=== PATIENT | male | born 1935 | race Caucasian/White ===

== ENCOUNTER 2020-06-06 20:46 | Inpatient (IN) ==
[2020-06-06] MEDS ORDERED: *HR* HYDROcodone/Acet 5/325 mg TABLET PO ONE (21:05)
[2020-06-06] MEDS ORDERED: GI Cocktail 40 ML EACH PO ONE (21:06)
[2020-06-06 21:17] LABS: Basophils % 0.1 %; Eosinophils # 0.1 K/mcL (0.0-0.6); Eosinophils % 0.7 %; Hematocrit 34.8 % (37.5-50.1); Hemoglobin 11.3 g/dL (12.9-16.9); Immature Granulocytes % 0.7 % (0-4); Lymphocytes # 0.6 K/mcL (0.6-4.6); Lymphocytes % 4.8 %; Mean Corpuscular HGB Conc 32.5 g/dL (31.6-35.5); Mean Corpuscular Hemoglobin 33.1 pg (28.0-33.3); Mean Corpuscular Volume 102.1 fL (83.0-100.0); Mean Platelet Volume 9.8 fL (9.4-12.4); Monocytes # 0.6 K/mcL (0.0-1.3); Monocytes % 4.7 %; Neutrophils # 11.1 K/mcL (1.6-8.9); Platelet Count 268 K/mcL (140-400); Red Blood Count 3.41 M/mcL (4.19-5.50); White Blood Count 12.5 K/mcL (4.3-11.1)
[2020-06-06 22:52] LABS: Alanine Aminotransferase 16 Units/L (7-52); Albumin/Globulin Ratio 1.3 (1.1-2.2); Alkaline Phosphatase 50 Units/L (34-104); Aspartate Amino Transferase 13 Units/L (13-39); BUN/Creatinine Ratio 42 (6-26); Bilirubin,Total 0.3 mg/dL (0.3-1.0); Blood Urea Nitrogen 25 mg/dL (8-23); Calcium 8.8 mg/dL (8.6-10.3); Carbon Dioxide 21 mEq/L (23-29); Chloride 104 mEq/L (98-107); Globulin 2.4 g/dL (2.4-3.5); Glucose 158 mg/dL (70-105); Lipase 40 Units/L (11-82); Osmolality,Calculated 294 (280-300); Potassium 4.6 mEq/L (3.5-5.1); Sodium 138 mEq/L (136-145); Total Protein 5.4 g/dL (6.4-8.9); eGFR For African Americans > 60 (> 60); eGFR For Non-African Americans > 60 (> 60)
[2020-06-06] MEDS ORDERED: Aspirin 325 MG TABLET PO ONE (23:34)
[2020-06-06] MEDS ORDERED: Metoclopramide 10 MG/2 ML VIAL IVP ONE (23:36)
[2020-06-06] MEDS ORDERED: Naloxone 0.4 MG/ML INJ IVP PRN (23:48)
[2020-06-07] MEDS ORDERED: D5% in Water 1,000 ML IVC PRN (01:13)
[2020-06-07] MEDS ORDERED: Dextrose Gel 15 GM/37.5 ML TUBE PO PRN ×2 (01:13)
[2020-06-07] MEDS ORDERED: *HR* Dextrose 50 % in Water (Vial) 50 ML VIAL IVP PRN (01:13)
[2020-06-07 05:23] LABS: Hematocrit 32.9 % (37.5-50.1); Hemoglobin 10.7 g/dL (12.9-16.9); Mean Corpuscular HGB Conc 32.5 g/dL (31.6-35.5); Mean Corpuscular Hemoglobin 32.9 pg (28.0-33.3); Mean Corpuscular Volume 101.2 fL (83.0-100.0); Mean Platelet Volume 9.8 fL (9.4-12.4); Platelet Count 246 K/mcL (140-400); Red Blood Count 3.25 M/mcL (4.19-5.50); Red Cell Distribution Width 14.1 % (11.5-14.5); White Blood Count 9.1 K/mcL (4.3-11.1)
[2020-06-07 05:28] LABS: Prothrombin Time 11.2 Seconds (9.4-12.1)
[2020-06-07 05:30] LABS: Activated Partial Thrombo Time 25.1 Seconds (26.0-36.0)
[2020-06-07] MEDS: Insulin LISPRO 300 UNITS/3 ML VIAL SQ SCH ×6 (05:40→20:52)
[2020-06-07 05:45] LABS: BUN/Creatinine Ratio 44 (6-26); Blood Urea Nitrogen 27 mg/dL (8-23); Calcium 8.2 mg/dL (8.6-10.3); Carbon Dioxide 23 mEq/L (23-29); Chloride 104 mEq/L (98-107); Glucose 119 mg/dL (70-105); Magnesium 1.6 mg/dL (1.6-2.6); Osmolality,Calculated 290 (280-300); Phosphorous 2.1 mg/dL (2.7-4.5); Potassium 4.5 mEq/L (3.5-5.1); Sodium 137 mEq/L (136-145); Troponin I < 0.03 ng/mL (< 0.04); eGFR For African Americans > 60 (> 60); eGFR For Non-African Americans > 60 (> 60)
[2020-06-07] MEDS ORDERED: Regadenoson 0.4 MG/5 ML SYRINGE IVP ONE (06:55)
[2020-06-07 10:14] LABS: Estimated Average Glucose 140 mg/dl; Hemoglobin A1C 6.5 %
[2020-06-07] MEDS: Sennosides/Docusate Sodium TABLET PO SCH ×2 (10:18→20:53)
[2020-06-07 11:55] LABS: Bilirubin,Urine Negative (Negative); Blood,Urine Small (Negative); Clarity,Urine Turbid (Clear); Color,Urine Yellow (Yellow); Glucose,Urine (UA) Normal (Normal); Hyaline Casts,Urine Few per lpf (None Seen); Ketones,Urine Negative (Negative); Leukocyte Esterase,Urine Trace (Negative); Mucus,Urine Few per lpf (None-Few); Nitrite,Urine Negative (Negative); Protein,Urine 50 mg/dL (Neg-Trace); RBC,Urine 15-30 per hpf (0-3); Specific Gravity,Urine 1.024 (1.010-1.025); Squamous Epithelial Cell,Urine Few per hpf (None-Few); Uric Acid Crystals,Urine Present; Urobilinogen,Urine Normal (Normal)
[2020-06-07] MEDS: Miconazole 2% ointment 141 APPL/141 GM TUBE TP SCH (12:59)
[2020-06-07] MEDS: Furosemide 40 MG TABLET PO SCH (13:08)
[2020-06-07] MEDS: amLODIPine 5 MG TABLET PO SCH (13:08)
[2020-06-07] MEDS: Aspirin Enteric Coated 81 MG Tablet PO SCH (13:08)
[2020-06-07] MEDS: carvediloL 6.25 MG TABLET PO SCH ×2 (13:09→20:53)
[2020-06-07] MEDS: cefTRIAXone 1,000 MG in Water for inj. (sterile) 10 ML IVP SCH (13:09)
[2020-06-07] MEDS: levETIRAcetam 250 MG TABLET PO SCH ×2 (13:12→20:53)
[2020-06-07] MEDS: *HR* Heparin 5,000 UNIT/ML VIAL SQ SCH (17:29)
[2020-06-08 05:16] LABS: Basophils % 0.1 %; Eosinophils # 0.4 K/mcL (0.0-0.6); Eosinophils % 4.5 %; Hemoglobin 10.3 g/dL (12.9-16.9); Immature Granulocytes % 0.6 % (0-4); Lymphocytes % 12.6 %; Mean Corpuscular HGB Conc 32.2 g/dL (31.6-35.5); Mean Corpuscular Hemoglobin 32.2 pg (28.0-33.3); Mean Platelet Volume 9.5 fL (9.4-12.4); Monocytes # 0.8 K/mcL (0.0-1.3); Monocytes % 10.5 %; Neutrophils # 5.6 K/mcL (1.6-8.9); Platelet Count 233 K/mcL (140-400); Red Cell Distribution Width 14.2 % (11.5-14.5); Segmented Neutrophils % 71.7 %; White Blood Count 7.8 K/mcL (4.3-11.1)
[2020-06-08 05:38] LABS: BUN/Creatinine Ratio 35 (6-26); Blood Urea Nitrogen 22 mg/dL (8-23); Calcium 7.7 mg/dL (8.6-10.3); Carbon Dioxide 27 mEq/L (23-29); Chloride 103 mEq/L (98-107); Glucose 89 mg/dL (70-105); Magnesium 1.7 mg/dL (1.6-2.6); Osmolality,Calculated 285 (280-300); Phosphorous 1.9 mg/dL (2.7-4.5); Potassium 3.7 mEq/L (3.5-5.1); Sodium 136 mEq/L (136-145); eGFR For African Americans > 60 (> 60); eGFR For Non-African Americans > 60 (> 60)
[2020-06-08] MEDS: *HR* Heparin 5,000 UNIT/ML VIAL SQ SCH ×2 (05:43→17:09)
[2020-06-08] MEDS: Insulin LISPRO 300 UNITS/3 ML VIAL SQ SCH ×5 (08:08→20:37)
[2020-06-08] MEDS: cefTRIAXone 1,000 MG in Water for inj. (sterile) 10 ML IVP SCH (08:51)
[2020-06-08] MEDS: Sennosides/Docusate Sodium TABLET PO SCH ×2 (08:51→19:48)
[2020-06-08] MEDS: carvediloL 6.25 MG TABLET PO SCH ×2 (08:52→20:33)
[2020-06-08] MEDS: amLODIPine 5 MG TABLET PO SCH (08:52)
[2020-06-08] MEDS: levETIRAcetam 250 MG TABLET PO SCH ×2 (08:52→19:49)
[2020-06-08] MEDS: Furosemide 40 MG TABLET PO SCH (08:52)
[2020-06-08] MEDS: Aspirin Enteric Coated 81 MG Tablet PO SCH (08:52)
[2020-06-08] MEDS: Miconazole 2% ointment 141 APPL/141 GM TUBE TP SCH (09:00)
[2020-06-08] MEDS: Budesonide/Formoterol 160/4.5 1 PUFF INH IH SCH ×2 (09:30→21:49)
[2020-06-08] MEDS: predniSONE 5 MG TABLET PO SCH ×2 (09:37→17:09)
[2020-06-08] MEDS: Lactobacillus 1 EACH CAP.SPRINK PO SCH (09:37)
[2020-06-08] MEDS: *HR* HYDROcodone/Acet 5/325 mg TABLET PO PRN ×2 (09:37→15:46)
[2020-06-08] MEDS: Tiotropium 18 MCG inhalation IH SCH (09:44)
[2020-06-08] MEDS ORDERED: Budesonide/Formoterol 160/4.5 1 PUFF INH IH SCH (10:00)
[2020-06-08 18:45] LABS: Adenovirus Not Detected (Not Detect); Coronavirus 229E Not Detected (Not Detect); Coronavirus HKU1 Not Detected (Not Detect); Coronavirus NL63 Not Detected (Not Detect); Coronavirus OC43 Not Detected (Not Detect); Human Metapneumovirus Not Detected (Not Detect); Human Rhinovirus/Enterovirus Not Detected (Not Detect); Influenza A Subtype 2009 H1 Not Detected (Not Detect)
[2020-06-08 18:46] LABS: Bordetella Pertussis Not Detected (Not Detect); Chlamydophila pneumoniae Not Detected (Not Detect); Influenza B Not Detected (Not Detect); Mycoplasma pneumoniae Not Detected (Not Detect); Parainfluenza Virus 1 Not Detected (Not Detect); Parainfluenza Virus 2 Not Detected (Not Detect); Parainfluenza Virus 3 Not Detected (Not Detect); Parainfluenza Virus 4 Not Detected (Not Detect); Respiratory Syncytial Virus Not Detected (Not Detect)
[2020-06-08 18:50] LABS: SARS-CoV-2 Not Detected (Not Detect)
[2020-06-09] MEDS: *HR* HYDROcodone/Acet 5/325 mg TABLET PO PRN ×2 (00:05→18:27)
[2020-06-09] MEDS: *HR* Heparin 5,000 UNIT/ML VIAL SQ SCH ×2 (05:45→18:17)
[2020-06-09] MEDS: levETIRAcetam 250 MG TABLET PO SCH ×2 (08:46→21:08)
[2020-06-09] MEDS: Aspirin Enteric Coated 81 MG Tablet PO SCH (08:47)
[2020-06-09] MEDS: amLODIPine 5 MG TABLET PO SCH (08:47)
[2020-06-09] MEDS: predniSONE 5 MG TABLET PO SCH ×2 (08:47→16:18)
[2020-06-09] MEDS: Sennosides/Docusate Sodium TABLET PO SCH ×2 (08:47→21:08)
[2020-06-09] MEDS: Lactobacillus 1 EACH CAP.SPRINK PO SCH (08:47)
[2020-06-09] MEDS: carvediloL 6.25 MG TABLET PO SCH ×2 (08:48→16:18)
[2020-06-09] MEDS: Furosemide 40 MG TABLET PO SCH (08:48)
[2020-06-09] MEDS: Insulin LISPRO 300 UNITS/3 ML VIAL SQ SCH ×5 (08:49→21:09)
[2020-06-09] MEDS: Tiotropium 18 MCG inhalation IH SCH (09:42)
[2020-06-09] MEDS: Budesonide/Formoterol 160/4.5 1 PUFF INH IH SCH ×2 (09:45→21:39)
[2020-06-09] MEDS: Miconazole 2% ointment 141 APPL/141 GM TUBE TP SCH (16:18)
[2020-06-10] MEDS: *HR* Heparin 5,000 UNIT/ML VIAL SQ SCH ×2 (05:26→17:06)
[2020-06-10] MEDS: Tiotropium 18 MCG inhalation IH SCH (07:56)
[2020-06-10] MEDS: Budesonide/Formoterol 160/4.5 1 PUFF INH IH SCH ×2 (07:56→21:59)
[2020-06-10] MEDS: Insulin LISPRO 300 UNITS/3 ML VIAL SQ SCH ×5 (08:19→21:27)
[2020-06-10 08:20] LABS: Hematocrit 31.4 % (37.5-50.1); Hemoglobin 10.3 g/dL (12.9-16.9); Mean Corpuscular HGB Conc 32.8 g/dL (31.6-35.5); Mean Corpuscular Hemoglobin 32.8 pg (28.0-33.3); Mean Platelet Volume 9.5 fL (9.4-12.4); Platelet Count 240 K/mcL (140-400); Red Blood Count 3.14 M/mcL (4.19-5.50); Red Cell Distribution Width 14.5 % (11.5-14.5); White Blood Count 7.2 K/mcL (4.3-11.1)
[2020-06-10] MEDS: Sennosides/Docusate Sodium TABLET PO SCH ×2 (08:24→21:26)
[2020-06-10] MEDS: Aspirin Enteric Coated 81 MG Tablet PO SCH (08:24)
[2020-06-10] MEDS: amLODIPine 5 MG TABLET PO SCH (08:24)
[2020-06-10] MEDS: carvediloL 6.25 MG TABLET PO SCH ×2 (08:25→17:06)
[2020-06-10] MEDS: Lactobacillus 1 EACH CAP.SPRINK PO SCH (08:25)
[2020-06-10] MEDS: levETIRAcetam 250 MG TABLET PO SCH ×2 (08:25→21:26)
[2020-06-10] MEDS: predniSONE 5 MG TABLET PO SCH ×2 (08:25→17:06)
[2020-06-10] MEDS: Furosemide 40 MG TABLET PO SCH (08:25)
[2020-06-10 09:33] LABS: BUN/Creatinine Ratio 26 (6-26); Blood Urea Nitrogen 16 mg/dL (8-23); Calcium 8.1 mg/dL (8.6-10.3); Carbon Dioxide 24 mEq/L (23-29); Chloride 104 mEq/L (98-107); Glucose 95 mg/dL (70-105); Osmolality,Calculated 287 (280-300); Potassium 4.2 mEq/L (3.5-5.1); Sodium 138 mEq/L (136-145); eGFR For African Americans > 60 (> 60); eGFR For Non-African Americans > 60 (> 60)
[2020-06-10] MEDS: *HR* HYDROcodone/Acet 5/325 mg TABLET PO PRN ×3 (10:13→23:13)
[2020-06-10] MEDS: Miconazole 2% ointment 141 APPL/141 GM TUBE TP SCH (15:22)
[2020-06-10] MEDS: Methyl Salicylate/Menthol 57 APPL/57 GM TUBE TP PRN (15:22)
[2020-06-11] MEDS: Acetaminophen 325 MG TABLET PO PRN ×2 (04:16→18:38)
[2020-06-11] MEDS: *HR* Heparin 5,000 UNIT/ML VIAL SQ SCH ×2 (06:34→18:39)
[2020-06-11] MEDS: Insulin LISPRO 300 UNITS/3 ML VIAL SQ SCH ×3 (08:07→18:31)
[2020-06-11] MEDS: Tiotropium 18 MCG inhalation IH SCH (08:11)
[2020-06-11] MEDS: Budesonide/Formoterol 160/4.5 1 PUFF INH IH SCH (08:12)
[2020-06-11] MEDS: Lactobacillus 1 EACH CAP.SPRINK PO SCH (09:50)
[2020-06-11] MEDS: Sennosides/Docusate Sodium TABLET PO SCH ×2 (09:50→20:14)
[2020-06-11] MEDS: carvediloL 6.25 MG TABLET PO SCH ×2 (09:50→18:38)
[2020-06-11] MEDS: levETIRAcetam 250 MG TABLET PO SCH ×2 (09:50→20:14)
[2020-06-11] MEDS: predniSONE 5 MG TABLET PO SCH ×2 (09:51→18:39)
[2020-06-11] MEDS: Aspirin Enteric Coated 81 MG Tablet PO SCH (09:51)
[2020-06-11] MEDS: Methyl Salicylate/Menthol 57 APPL/57 GM TUBE TP PRN (09:51)
[2020-06-11] MEDS: amLODIPine 5 MG TABLET PO SCH (09:51)
[2020-06-11] MEDS: Furosemide 40 MG TABLET PO SCH (09:51)
[2020-06-11 13:14] VITALS: BP 150/77
[2020-06-11] MEDS: Miconazole 2% ointment 141 APPL/141 GM TUBE TP SCH (18:38)
== END 2020-06-11 20:32 | disposition home health service (06) | DRG 556 ==
LOC: 3BNU 20:46 → EMEROOARM 20:46 → SUATTDRO 06-07 00:24 → 3BNU 06-07 00:49 → 3ANU 06-08 16:35
PROVIDERS: ADMIT Family Medicine; ATTEND Internal Medicine

== ENCOUNTER 2020-06-26 12:05 | Inpatient (IN) ==
[2020-06-26] MEDS ORDERED: Piperacillin/Tazobactam 3.375 GM in 0.9 % Sodium Chloride Mini Bag 100 ML IVPB ONE (12:24)
[2020-06-26] MEDS ORDERED: Isovue-370 500 ML BOTTLE IVP ONE (12:24)
[2020-06-26 13:10] LABS: Prothrombin Time 11.5 Seconds (9.4-12.1)
[2020-06-26 13:21] LABS: Basophils % 0.3 %; Eosinophils # 0.2 K/mcL (0.0-0.6); Eosinophils % 1.7 %; Hematocrit 37.8 % (37.5-50.1); Hemoglobin 11.6 g/dL (12.9-16.9); Immature Granulocytes % 0.7 % (0-4); Lymphocytes # 0.6 K/mcL (0.6-4.6); Lymphocytes % 5.3 %; Mean Corpuscular HGB Conc 30.7 g/dL (31.6-35.5); Mean Corpuscular Hemoglobin 32.2 pg (28.0-33.3); Mean Platelet Volume 9.6 fL (9.4-12.4); Monocytes # 0.7 K/mcL (0.0-1.3); Monocytes % 5.7 %; Neutrophils # 10.5 K/mcL (1.6-8.9); Platelet Count 329 K/mcL (140-400); Red Cell Distribution Width 14.4 % (11.5-14.5); Segmented Neutrophils % 86.3 %; White Blood Count 12.2 K/mcL (4.3-11.1)
[2020-06-26 13:23] LABS: BUN/Creatinine Ratio 41 (6-26); Blood Urea Nitrogen 27 mg/dL (8-23); Calcium 8.8 mg/dL (8.6-10.3); Carbon Dioxide 22 mEq/L (23-29); Chloride 104 mEq/L (98-107); Glucose 96 mg/dL (70-105); Osmolality,Calculated 291 (280-300); Potassium 4.1 mEq/L (3.5-5.1); Sodium 138 mEq/L (136-145); eGFR For African Americans > 60 (> 60); eGFR For Non-African Americans > 60 (> 60)
[2020-06-26 15:13] LABS: Adenovirus Not Detected (Not Detect); Bordetella Pertussis Not Detected (Not Detect); Chlamydophila pneumoniae Not Detected (Not Detect); Coronavirus 229E Not Detected (Not Detect); Coronavirus HKU1 Not Detected (Not Detect); Coronavirus NL63 Not Detected (Not Detect); Coronavirus OC43 Not Detected (Not Detect); Human Metapneumovirus Not Detected (Not Detect); Human Rhinovirus/Enterovirus Not Detected (Not Detect); Influenza A Subtype 2009 H1 Not Detected (Not Detect); Influenza B Not Detected (Not Detect); Mycoplasma pneumoniae Not Detected (Not Detect); Parainfluenza Virus 1 Not Detected (Not Detect); Parainfluenza Virus 2 Not Detected (Not Detect); Parainfluenza Virus 3 Not Detected (Not Detect); Parainfluenza Virus 4 Not Detected (Not Detect); Respiratory Syncytial Virus Not Detected (Not Detect)
[2020-06-26] MEDS ORDERED: Naloxone 0.4 MG/ML INJ IVP PRN (15:40)
[2020-06-26 16:37] LABS: C-Reactive Protein 98 mg/L (Less than 10)
[2020-06-26] MEDS ORDERED: Dextrose Gel 15 GM/37.5 ML TUBE PO PRN ×2 (16:38)
[2020-06-26] MEDS ORDERED: D5% in Water 1,000 ML IVC PRN (16:38)
[2020-06-26] MEDS ORDERED: *HR* Dextrose 50 % in Water (Vial) 50 ML VIAL IVP PRN (16:38)
[2020-06-26] MEDS ORDERED: Albuterol 2.5 MG/3 ML NEBULIZER IH PRN (16:40)
[2020-06-26] MEDS ORDERED: 0.9 % Sodium Chloride 1,000 ML IVC SCH (18:15)
[2020-06-26] MEDS: carvediloL 6.25 MG TABLET PO SCH (19:05)
[2020-06-26] MEDS: Budesonide/Formoterol 160/4.5 1 PUFF INH IH SCH (19:36)
[2020-06-26] MEDS: levETIRAcetam 250 MG TABLET PO SCH (21:31)
[2020-06-26] MEDS: predniSONE 5 MG TABLET PO SCH (21:31)
[2020-06-26] MEDS: *HR* Heparin 5,000 UNIT/ML VIAL SQ SCH (21:31)
[2020-06-26] MEDS: *HR* HYDROcodone/Acet 5/325 mg TABLET PO PRN (21:51)
[2020-06-27] MEDS: *HR* HYDROcodone/Acet 5/325 mg TABLET PO PRN ×3 (04:24→20:49)
[2020-06-27] MEDS: *HR* Heparin 5,000 UNIT/ML VIAL SQ SCH ×3 (04:28→20:49)
[2020-06-27 06:05] LABS: Basophils % 0.5 %; Eosinophils # 0.1 K/mcL (0.0-0.6); Hematocrit 37.8 % (37.5-50.1); Hemoglobin 11.1 g/dL (12.9-16.9); Immature Granulocytes % 1.2 % (0-4); Lymphocytes # 0.9 K/mcL (0.6-4.6); Lymphocytes % 11.7 %; Mean Corpuscular HGB Conc 29.4 g/dL (31.6-35.5); Mean Corpuscular Hemoglobin 32.3 pg (28.0-33.3); Mean Corpuscular Volume 109.9 fL (83.0-100.0); Mean Platelet Volume 9.9 fL (9.4-12.4); Monocytes # 0.6 K/mcL (0.0-1.3); Monocytes % 7.8 %; Platelet Count 411 K/mcL (140-400); Red Blood Count 3.44 M/mcL (4.19-5.50); Red Cell Distribution Width 14.5 % (11.5-14.5); Segmented Neutrophils % 77.8 %; White Blood Count 7.7 K/mcL (4.3-11.1)
[2020-06-27 06:24] LABS: BUN/Creatinine Ratio 44 (6-26); Blood Urea Nitrogen 34 mg/dL (8-23); Calcium 8.2 mg/dL (8.6-10.3); Carbon Dioxide 12 mEq/L (23-29); Chloride 105 mEq/L (98-107); Glucose 122 mg/dL (70-105); Osmolality,Calculated 293 (280-300); Potassium 4.3 mEq/L (3.5-5.1); Sodium 137 mEq/L (136-145); eGFR For African Americans > 60 (> 60); eGFR For Non-African Americans > 60 (> 60)
[2020-06-27] MEDS: Budesonide/Formoterol 160/4.5 1 PUFF INH IH SCH ×2 (07:13→21:22)
[2020-06-27] MEDS: Tiotropium 18 MCG inhalation IH SCH (07:13)
[2020-06-27] MEDS: levETIRAcetam 250 MG TABLET PO SCH ×2 (10:13→20:49)
[2020-06-27] MEDS: Lactobacillus 1 EACH CAP.SPRINK PO SCH (10:13)
[2020-06-27] MEDS: Furosemide 40 MG TABLET PO SCH (10:14)
[2020-06-27] MEDS: amLODIPine 5 MG TABLET PO SCH (10:14)
[2020-06-27] MEDS: lisinopriL 10 MG TABLET PO SCH (10:15)
[2020-06-27] MEDS: Aspirin Enteric Coated 81 MG Tablet PO SCH (10:15)
[2020-06-27] MEDS: predniSONE 5 MG TABLET PO SCH ×2 (10:15→20:49)
[2020-06-27] MEDS: carvediloL 6.25 MG TABLET PO SCH ×2 (10:29→18:27)
[2020-06-27] MEDS: Insulin LISPRO 300 UNITS/3 ML VIAL SQ SCH ×3 (11:14→18:27)
[2020-06-27] MEDS: Miconazole 2% ointment 141 APPL/141 GM TUBE TP SCH (11:15)
[2020-06-27] MEDS: Gentamicin Oint 15 GM TUBE TP SCH (18:14)
[2020-06-27] MEDS: Primidone 50 MG TABLET PO SCH (20:49)
[2020-06-28] MEDS: *HR* Heparin 5,000 UNIT/ML VIAL SQ SCH ×3 (05:38→21:22)
[2020-06-28] MEDS: *HR* HYDROcodone/Acet 5/325 mg TABLET PO PRN ×3 (05:38→21:21)
[2020-06-28 07:51] LABS: BUN/Creatinine Ratio 45 (6-26); Blood Urea Nitrogen 33 mg/dL (8-23); Calcium 8.1 mg/dL (8.6-10.3); Carbon Dioxide 21 mEq/L (23-29); Chloride 108 mEq/L (98-107); Glucose 118 mg/dL (70-105); Osmolality,Calculated 292 (280-300); Potassium 3.5 mEq/L (3.5-5.1); Sodium 137 mEq/L (136-145); eGFR For African Americans > 60 (> 60); eGFR For Non-African Americans > 60 (> 60)
[2020-06-28] MEDS: Insulin LISPRO 300 UNITS/3 ML VIAL SQ SCH ×3 (07:58→17:00)
[2020-06-28] MEDS: levETIRAcetam 250 MG TABLET PO SCH ×2 (08:08→19:34)
[2020-06-28] MEDS: Aspirin Enteric Coated 81 MG Tablet PO SCH (08:08)
[2020-06-28] MEDS: Lactobacillus 1 EACH CAP.SPRINK PO SCH (08:08)
[2020-06-28] MEDS: carvediloL 6.25 MG TABLET PO SCH ×2 (08:08→17:00)
[2020-06-28] MEDS: Furosemide 40 MG TABLET PO SCH (08:08)
[2020-06-28] MEDS: predniSONE 5 MG TABLET PO SCH ×2 (08:09→19:34)
[2020-06-28] MEDS: lisinopriL 10 MG TABLET PO SCH (08:09)
[2020-06-28] MEDS: amLODIPine 5 MG TABLET PO SCH (08:09)
[2020-06-28] MEDS: Primidone 50 MG TABLET PO SCH ×2 (08:09→19:34)
[2020-06-28 08:57] LABS: Basophils % 0.5 %; Eosinophils # 0.2 K/mcL (0.0-0.6); Eosinophils % 2.2 %; Hematocrit 31.8 % (37.5-50.1); Lymphocytes # 1.1 K/mcL (0.6-4.6); Lymphocytes % 12.9 %; Mean Corpuscular HGB Conc 31.4 g/dL (31.6-35.5); Mean Corpuscular Hemoglobin 31.6 pg (28.0-33.3); Mean Corpuscular Volume 100.6 fL (83.0-100.0); Mean Platelet Volume 9.7 fL (9.4-12.4); Monocytes # 0.8 K/mcL (0.0-1.3); Platelet Count 333 K/mcL (140-400); Red Blood Count 3.16 M/mcL (4.19-5.50); Red Cell Distribution Width 14.6 % (11.5-14.5); Segmented Neutrophils % 73.4 %; White Blood Count 8.1 K/mcL (4.3-11.1)
[2020-06-28] MEDS: Tiotropium 18 MCG inhalation IH SCH (10:21)
[2020-06-28] MEDS: Budesonide/Formoterol 160/4.5 1 PUFF INH IH SCH ×2 (10:21→23:30)
[2020-06-28] MEDS: Gentamicin Oint 15 GM TUBE TP SCH (12:55)
[2020-06-28] MEDS: Miconazole 2% ointment 141 APPL/141 GM TUBE TP SCH (12:56)
[2020-06-29] MEDS: *HR* Heparin 5,000 UNIT/ML VIAL SQ SCH ×3 (05:19→22:02)
[2020-06-29] MEDS: *HR* HYDROcodone/Acet 5/325 mg TABLET PO PRN ×3 (05:19→23:42)
[2020-06-29] MEDS ORDERED: *HR* OxyCODONE Immed Rel 5 MG TABLET PO ONE (08:19)
[2020-06-29] MEDS ORDERED: Isovue-370 500 ML BOTTLE IVP ONE (08:31)
[2020-06-29] MEDS: Lactobacillus 1 EACH CAP.SPRINK PO SCH (09:01)
[2020-06-29] MEDS: Aspirin Enteric Coated 81 MG Tablet PO SCH (09:02)
[2020-06-29] MEDS: levETIRAcetam 250 MG TABLET PO SCH ×2 (09:02→22:01)
[2020-06-29] MEDS: Furosemide 40 MG TABLET PO SCH (09:03)
[2020-06-29] MEDS: predniSONE 5 MG TABLET PO SCH ×2 (09:03→22:01)
[2020-06-29] MEDS: Primidone 50 MG TABLET PO SCH ×2 (09:04→22:01)
[2020-06-29] MEDS: carvediloL 6.25 MG TABLET PO SCH ×2 (09:04→17:58)
[2020-06-29] MEDS: Insulin LISPRO 300 UNITS/3 ML VIAL SQ SCH ×3 (09:05→17:59)
[2020-06-29] MEDS ORDERED: Aspirin 81 MG TAB.CHEW PO ONE (09:14)
[2020-06-29] MEDS: Tiotropium 18 MCG inhalation IH SCH (10:40)
[2020-06-29] MEDS: Budesonide/Formoterol 160/4.5 1 PUFF INH IH SCH ×2 (10:41→22:40)
[2020-06-29 13:30] LABS: Albumin 2.6 g/dL (3.5-5.7); Bilirubin,Direct 0.1 mg/dL (0.0-0.2); Bilirubin,Indirect 0.1 mg/dL (0.0-1.0); Bilirubin,Total 0.2 mg/dL (0.3-1.0); Globulin 2.5 g/dL (2.4-3.5); Total Protein 5.1 g/dL (6.4-8.9)
[2020-06-29 13:43] LABS: Thyroid Stimulating Hormone 5.851 mcIU/mL (0.340-5.600)
[2020-06-29] MEDS: amLODIPine 5 MG TABLET PO SCH (15:22)
[2020-06-29] MEDS: lisinopriL 10 MG TABLET PO SCH (15:22)
[2020-06-29] MEDS ORDERED: Perflutren Lipid Microsphere 1.3 ML in 0.9 % Sodium Chloride 8.7 ML IVP PRN (17:54)
[2020-06-29] MEDS: Miconazole 2% ointment 141 APPL/141 GM TUBE TP SCH (17:58)
[2020-06-29] MEDS: Gentamicin Oint 15 GM TUBE TP SCH (17:58)
[2020-06-30] MEDS: *HR* HYDROcodone/Acet 5/325 mg TABLET PO PRN ×3 (05:40→19:48)
[2020-06-30] MEDS: *HR* Heparin 5,000 UNIT/ML VIAL SQ SCH ×2 (05:41→15:08)
[2020-06-30] MEDS: Tiotropium 18 MCG inhalation IH SCH (07:28)
[2020-06-30] MEDS: Budesonide/Formoterol 160/4.5 1 PUFF INH IH SCH ×2 (07:29→21:45)
[2020-06-30] MEDS: predniSONE 5 MG TABLET PO SCH ×2 (08:38→19:48)
[2020-06-30] MEDS: carvediloL 6.25 MG TABLET PO SCH ×2 (08:39→16:42)
[2020-06-30] MEDS: levETIRAcetam 250 MG TABLET PO SCH ×2 (08:39→19:47)
[2020-06-30] MEDS: Primidone 50 MG TABLET PO SCH ×2 (08:39→19:48)
[2020-06-30] MEDS: Lactobacillus 1 EACH CAP.SPRINK PO SCH (08:39)
[2020-06-30] MEDS: Aspirin Enteric Coated 81 MG Tablet PO SCH (08:39)
[2020-06-30] MEDS: Furosemide 40 MG TABLET PO SCH (08:40)
[2020-06-30] MEDS: amLODIPine 5 MG TABLET PO SCH (08:40)
[2020-06-30] MEDS: lisinopriL 10 MG TABLET PO SCH (08:40)
[2020-06-30] MEDS: Insulin LISPRO 300 UNITS/3 ML VIAL SQ SCH ×3 (08:47→16:43)
[2020-06-30] MEDS: Miconazole 2% ointment 141 APPL/141 GM TUBE TP SCH (12:01)
[2020-06-30] MEDS: Gentamicin Oint 15 GM TUBE TP SCH (12:01)
[2020-06-30] MEDS: Nystatin SUSP 5 ML UD.LIQ PO SCH ×3 (12:23→19:47)
[2020-06-30] MEDS ORDERED: *HR* Heparin 5,000 UNIT/ML VIAL IVP ONE (15:19)
[2020-06-30] MEDS ORDERED: *HR* Heparin 5,000 UNIT/ML VIAL IVP PRN ×2 (15:19)
[2020-06-30] MEDS ORDERED: Heparin 25,000UNIT/250ML 1/2NS 25,000 UNIT/250 ML IV.SOLN IVC SCH (15:30)
[2020-06-30 16:52] LABS: Heparin anti-factor XA UFH 0.61 IU/mL (0.30-0.70); INR 1.2; Prothrombin Time 13.4 Seconds (9.4-12.1)
[2020-06-30 17:10] LABS: Hematocrit 34.8 % (37.5-50.1); Hemoglobin 11.3 g/dL (12.9-16.9); Mean Corpuscular HGB Conc 32.5 g/dL (31.6-35.5); Mean Corpuscular Hemoglobin 33.1 pg (28.0-33.3); Mean Corpuscular Volume 102.1 fL (83.0-100.0); Mean Platelet Volume 9.8 fL (9.4-12.4); Platelet Count 416 K/mcL (140-400); Red Blood Count 3.41 M/mcL (4.19-5.50); Red Cell Distribution Width 14.9 % (11.5-14.5); White Blood Count 10.6 K/mcL (4.3-11.1)
[2020-07-01] MEDS: Budesonide/Formoterol 160/4.5 1 PUFF INH IH SCH ×2 (07:52→22:16)
[2020-07-01] MEDS: Tiotropium 18 MCG inhalation IH SCH (07:53)
[2020-07-01] MEDS: carvediloL 6.25 MG TABLET PO SCH ×2 (08:08→17:11)
[2020-07-01] MEDS: Insulin LISPRO 300 UNITS/3 ML VIAL SQ SCH ×3 (08:08→17:11)
[2020-07-01] MEDS: amLODIPine 5 MG TABLET PO SCH (10:13)
[2020-07-01] MEDS: Lactobacillus 1 EACH CAP.SPRINK PO SCH (10:13)
[2020-07-01] MEDS: predniSONE 5 MG TABLET PO SCH ×2 (10:13→20:31)
[2020-07-01] MEDS: lisinopriL 20 MG TABLET PO SCH (10:14)
[2020-07-01] MEDS: levETIRAcetam 250 MG TABLET PO SCH ×2 (10:14→20:31)
[2020-07-01] MEDS: Primidone 50 MG TABLET PO SCH ×2 (10:14→20:31)
[2020-07-01] MEDS: Aspirin Enteric Coated 81 MG Tablet PO SCH (10:14)
[2020-07-01] MEDS: Nystatin SUSP 5 ML UD.LIQ PO SCH ×4 (10:14→20:31)
[2020-07-01] MEDS: Furosemide 40 MG TABLET PO SCH (10:14)
[2020-07-01] MEDS: *HR* HYDROcodone/Acet 5/325 mg TABLET PO PRN (10:32)
[2020-07-01] MEDS: *HR* Enoxaparin 60 MG/0.6 ML SYRINGE SQ SCH (12:49)
[2020-07-01] MEDS: *HR* OxyCODONE/APAP 5/325 TABLET PO PRN ×2 (14:17→20:31)
[2020-07-01] MEDS: Miconazole 2% ointment 141 APPL/141 GM TUBE TP SCH (17:54)
[2020-07-01] MEDS: Gentamicin Oint 15 GM TUBE TP SCH (17:54)
[2020-07-02] MEDS: *HR* OxyCODONE/APAP 5/325 TABLET PO PRN ×2 (08:47→14:50)
[2020-07-02] MEDS: carvediloL 6.25 MG TABLET PO SCH ×2 (08:47→17:44)
[2020-07-02] MEDS: Insulin LISPRO 300 UNITS/3 ML VIAL SQ SCH ×3 (08:48→17:44)
[2020-07-02] MEDS: Aspirin Enteric Coated 81 MG Tablet PO SCH (09:36)
[2020-07-02] MEDS: Lactobacillus 1 EACH CAP.SPRINK PO SCH (09:37)
[2020-07-02] MEDS: lisinopriL 20 MG TABLET PO SCH (09:37)
[2020-07-02] MEDS: predniSONE 5 MG TABLET PO SCH (09:37)
[2020-07-02] MEDS: Primidone 50 MG TABLET PO SCH (09:37)
[2020-07-02] MEDS: levETIRAcetam 250 MG TABLET PO SCH (09:37)
[2020-07-02] MEDS: amLODIPine 5 MG TABLET PO SCH (09:37)
[2020-07-02] MEDS: Nystatin SUSP 5 ML UD.LIQ PO SCH ×3 (09:38→17:44)
[2020-07-02] MEDS: *HR* Enoxaparin 60 MG/0.6 ML SYRINGE SQ SCH (09:38)
[2020-07-02] MEDS: Furosemide 40 MG TABLET PO SCH (09:42)
[2020-07-02] MEDS: Budesonide/Formoterol 160/4.5 1 PUFF INH IH SCH (10:52)
[2020-07-02] MEDS: Tiotropium 18 MCG inhalation IH SCH (10:52)
[2020-07-02] MEDS: Miconazole 2% ointment 141 APPL/141 GM TUBE TP SCH (17:45)
[2020-07-02] MEDS: Gentamicin Oint 15 GM TUBE TP SCH (17:46)
[2020-07-02 19:44] VITALS: BP 82/56
== END 2020-07-02 20:35 | disposition home health service (06) | DRG 570 ==
LOC: EMEROOARM 12:05 → 3ANU 12:05 → SUATTDRO 06-27 14:27
PROVIDERS: ADMIT Internal Medicine; ATTEND Student in an Organized Health Care Education/Training Program

== ENCOUNTER 2020-07-07 16:38 | Inpatient (IN) ==
[2020-07-07 18:25] LABS: Basophils % 0.1 %; Eosinophils % 0.1 %; Hematocrit 33.5 % (37.5-50.1); Hemoglobin 10.5 g/dL (12.9-16.9); Immature Granulocytes % 0.7 % (0-4); Lymphocytes # 0.6 K/mcL (0.6-4.6); Lymphocytes % 2.9 %; Mean Corpuscular HGB Conc 31.3 g/dL (31.6-35.5); Mean Corpuscular Hemoglobin 33.4 pg (28.0-33.3); Mean Corpuscular Volume 106.7 fL (83.0-100.0); Mean Platelet Volume 9.7 fL (9.4-12.4); Monocytes # 1.5 K/mcL (0.0-1.3); Monocytes % 7.1 %; Neutrophils # 19.3 K/mcL (1.6-8.9); Platelet Count 460 K/mcL (140-400); Red Blood Count 3.14 M/mcL (4.19-5.50); Red Cell Distribution Width 15.9 % (11.5-14.5); Segmented Neutrophils % 89.1 %; White Blood Count 21.7 K/mcL (4.3-11.1)
[2020-07-07] MEDS ORDERED: Cefepime HCl 2,000 MG in Water for inj. (sterile) 20 ML IVP ONE (18:32)
[2020-07-07] MEDS ORDERED: Azithromycin 500 MG in 0.9 % Sodium Chloride 250 ML IVPB ONE (18:32)
[2020-07-07] MEDS ORDERED: 0.9 % Sodium Chloride 500 ML IVC ONE (18:35)
[2020-07-07] MEDS ORDERED: *HR* FentaNYL (PF) 100 MCG/2 ML VIAL IVP ONE (18:58)
[2020-07-07 19:17] LABS: Calcium 8.1 mg/dL (8.6-10.3); Potassium 6.9 mEq/L (3.5-5.1); Troponin I 0.04 ng/mL (< 0.04)
[2020-07-07] MEDS ORDERED: *HR* Dextrose 50 % in Water (Vial) 50 ML VIAL IVP ONE (19:22)
[2020-07-07] MEDS ORDERED: Sodium Bicarbonate 50 MEQ/50 ML VIAL IVP ONE (19:23)
[2020-07-07] MEDS ORDERED: Ipratropium/Albuterol Neb 3 ML IH ONE (19:24)
[2020-07-07] MEDS ORDERED: Insulin Human Regular 10 UNIT in 0.9 % Sodium Chloride 10 ML IV STA (19:24)
[2020-07-07 19:25] LABS: Adenovirus Not Detected (Not Detect); Coronavirus 229E Not Detected (Not Detect); Coronavirus HKU1 Not Detected (Not Detect); Coronavirus NL63 Not Detected (Not Detect); Coronavirus OC43 Not Detected (Not Detect)
[2020-07-07 19:26] LABS: Bordetella Pertussis Not Detected (Not Detect); Chlamydophila pneumoniae Not Detected (Not Detect); Human Metapneumovirus Not Detected (Not Detect); Human Rhinovirus/Enterovirus Not Detected (Not Detect); Influenza A Subtype 2009 H1 Not Detected (Not Detect); Influenza B Not Detected (Not Detect); Mycoplasma pneumoniae Not Detected (Not Detect); Parainfluenza Virus 1 Not Detected (Not Detect); Parainfluenza Virus 2 Not Detected (Not Detect); Parainfluenza Virus 3 Not Detected (Not Detect); Parainfluenza Virus 4 Not Detected (Not Detect); Respiratory Syncytial Virus Not Detected (Not Detect)
[2020-07-07] MEDS ORDERED: Furosemide 20 MG/2 ML VIAL IVP ONE (19:48)
[2020-07-07 20:10] LABS: Calcium 7.7 mg/dL (8.6-10.3); Potassium 6.5 mEq/L (3.5-5.1)
[2020-07-07] MEDS: Norepinephrine 4 MG/254 ML IV.SOLN IVC SCH ×2 (20:10→23:10)
[2020-07-07] MEDS: Calcium Gluconate 1gm/50mL 1 GM/50 ML BAG IVPB SCH ×2 (20:12→23:27)
[2020-07-07] MEDS ORDERED: Naloxone 0.4 MG/ML INJ IVP PRN (23:12)
[2020-07-08] LABS: Bacteria,Urine Few per hpf (None-Few); Bilirubin,Urine Negative (Negative); Blood,Urine Large (Negative); Clarity,Urine Turbid (Clear); Color,Urine Yellow (Yellow); Glucose,Urine (UA) 70 mg/dL (Normal); Hyaline Casts,Urine Many per lpf (None Seen); Ketones,Urine Negative (Negative); Leukocyte Esterase,Urine Small (Negative); Mucus,Urine Few per lpf (None-Few); Nitrite,Urine Negative (Negative); Protein,Urine 50 mg/dL (Neg-Trace); RBC,Urine 50-100 per hpf (0-3); Renal Epithelial Cells,Urine Few per hpf (None-Few); Specific Gravity,Urine 1.017 (1.010-1.025); Transitional Epi Cells,Urine Few per hpf (None-Few); Urobilinogen,Urine Normal (Normal); WBC,Urine 50-100 per hpf (0-3); White Blood Cell Casts,Urine Many per lpf (None Seen)
[2020-07-08 00:02] LABS: Potassium,Urine 58.1 mEq/L; Protein/Creatinine Ratio,Urine 1.74 mg/mg (0.00-0.20); Sodium, Urine 52.4 mEq/L
[2020-07-08 00:20] LABS: Prothrombin Time 11.6 Seconds (9.4-12.1)
[2020-07-08 00:30] LABS: Albumin 2.4 g/dL (3.5-5.7); Bilirubin,Total 0.3 mg/dL (0.3-1.0); Calcium 8.4 mg/dL (8.6-10.3); Globulin 2.5 g/dL (2.4-3.5); Magnesium 1.5 mg/dL (1.6-2.6); Phosphorous 3.8 mg/dL (2.7-4.5); Potassium 6.3 mEq/L (3.5-5.1); Total Protein 4.9 g/dL (6.4-8.9)
[2020-07-08] MEDS: Norepinephrine 4 MG/254 ML IV.SOLN IVC SCH ×6 (02:19→20:00)
[2020-07-08] MEDS ORDERED: 0.9 % Sodium Chloride 500 ML IVC ONE (03:39)
[2020-07-08 03:46] LABS: Basophils % 0.1 %; Eosinophils % 0.1 %; Hematocrit 29.6 % (37.5-50.1); Hemoglobin 9.3 g/dL (12.9-16.9); Immature Granulocytes % 0.7 % (0-4); Lymphocytes # 0.8 K/mcL (0.6-4.6); Lymphocytes % 4.1 %; Mean Corpuscular HGB Conc 31.4 g/dL (31.6-35.5); Mean Corpuscular Hemoglobin 32.3 pg (28.0-33.3); Mean Corpuscular Volume 102.8 fL (83.0-100.0); Mean Platelet Volume 9.6 fL (9.4-12.4); Monocytes # 1.6 K/mcL (0.0-1.3); Monocytes % 8.1 %; Neutrophils # 16.6 K/mcL (1.6-8.9); Platelet Count 517 K/mcL (140-400); Red Blood Count 2.88 M/mcL (4.19-5.50); Red Cell Distribution Width 15.8 % (11.5-14.5); Segmented Neutrophils % 86.9 %; White Blood Count 19.1 K/mcL (4.3-11.1)
[2020-07-08 04:05] LABS: Calcium 8.2 mg/dL (8.6-10.3); Potassium 6.3 mEq/L (3.5-5.1)
[2020-07-08] MEDS ORDERED: D5% in Water 1,000 ML IVC PRN (04:17)
[2020-07-08] MEDS ORDERED: *HR* Dextrose 50 % in Water (Vial) 50 ML VIAL IVP PRN (04:17)
[2020-07-08] MEDS ORDERED: Dextrose Gel 15 GM/37.5 ML TUBE PO PRN ×2 (04:17)
[2020-07-08] MEDS ORDERED: Sodium Bicarbonate 150 MEQ in D5% in Water 1,000 ML IVC SCH ×2 (06:00→17:45)
[2020-07-08] MEDS ORDERED: Insulin Regular, Human 100 UNIT/ML IV ONE (06:05)
[2020-07-08] MEDS ORDERED: *HR* Dextrose 50 % in Water (Vial) 50 ML VIAL IVP ONE (06:05)
[2020-07-08] MEDS ORDERED: Albuterol 2.5 MG/3 ML NEBULIZER IH ONE (06:06)
[2020-07-08] MEDS: Insulin LISPRO 300 UNITS/3 ML VIAL SQ SCH ×3 (06:07→18:14)
[2020-07-08] MEDS ORDERED: Insulin Human Regular 5 UNIT in 0.9 % Sodium Chloride 10 ML IV ONE (06:15)
[2020-07-08 06:56] LABS: ABG Base Excess -10 mEq/L (-2 to 3); ABG HCO3 14 mEq/L (21-27); ABG Oxygen Saturation 94 % (95-98); ABG PCO2 23 mmHg (35-45); ABG PH 7.39 pH Units (7.32-7.45); ABG PO2 71 mmHg (85-104); ABG TCO2 15 mEq/L (20-26)
[2020-07-08] MEDS ORDERED: levoFLOXacin 500 MG/100 ML 500 MG/100 ML BAG IVPB ONE (09:00)
[2020-07-08] MEDS ORDERED: cefTRIAXone 1,000 MG in Water for inj. (sterile) 10 ML IVP SCH (09:00)
[2020-07-08 09:25] LABS: Calcium 8.5 mg/dL (8.6-10.3); Potassium 5.8 mEq/L (3.5-5.1)
[2020-07-08] MEDS ORDERED: Albuterol 2.5 MG/3 ML NEBULIZER IH PRN (13:42)
[2020-07-08] MEDS ORDERED: levETIRAcetam 250 MG TABLET PO SCH (13:45)
[2020-07-08] MEDS: *HR* Heparin 5,000 UNIT/ML VIAL SQ SCH ×2 (14:44→22:05)
[2020-07-08] MEDS: Miconazole 2% ointment 141 APPL/141 GM TUBE TP SCH (16:05)
[2020-07-08] MEDS: Gentamicin Oint 15 GM TUBE TP SCH (16:06)
[2020-07-08 16:13] LABS: VBG Ionized Calcium 1.16 mmol/L (1.15-1.35)
[2020-07-08 16:30] LABS: Calcium 8.1 mg/dL (8.6-10.3); Magnesium 1.8 mg/dL (1.6-2.6); Phosphorous 2.8 mg/dL (2.7-4.5)
[2020-07-08] MEDS: Hydrocortisone Sodium Succ 100 MG/2 ML VIAL IVP SCH (17:44)
[2020-07-08] MEDS: Cefepime HCl 1,000 MG in Water for inj. (sterile) 10 ML IVP SCH (17:45)
[2020-07-08] MEDS: Budesonide/Formoterol 160/4.5 1 PUFF INH IH SCH (20:13)
[2020-07-08] MEDS: Primidone 50 MG TABLET PO SCH (22:09)
[2020-07-08 23:19] LABS: VBG Ionized Calcium 1.04 mmol/L (1.15-1.35)
[2020-07-08 23:42] LABS: BUN/Creatinine Ratio 42 (6-26); Blood Urea Nitrogen 51 mg/dL (8-23); Calcium 7.3 mg/dL (8.6-10.3); Carbon Dioxide 17 mEq/L (23-29); Chloride 110 mEq/L (98-107); Glucose 183 mg/dL (70-105); Magnesium 1.6 mg/dL (1.6-2.6); Osmolality,Calculated 306 (280-300); Phosphorous 2.6 mg/dL (2.7-4.5); Potassium 4.5 mEq/L (3.5-5.1); Sodium 139 mEq/L (136-145); eGFR For African Americans > 60 (> 60); eGFR For Non-African Americans 56 (> 60)
[2020-07-09] MEDS ORDERED: Calcium Gluconate 1gm/50mL 1 GM/50 ML BAG IVPB SCH (00:30)
[2020-07-09] MEDS: Norepinephrine 4 MG/254 ML IV.SOLN IVC SCH (00:35)
[2020-07-09] MEDS: Hydrocortisone Sodium Succ 100 MG/2 ML VIAL IVP SCH ×3 (00:42→22:13)
[2020-07-09] MEDS: Pantoprazole 40 MG VIAL IVP SCH ×2 (00:47→08:47)
[2020-07-09] MEDS: Insulin LISPRO 300 UNITS/3 ML VIAL SQ SCH ×5 (00:50→17:37)
[2020-07-09 05:09] LABS: Basophils % 0.1 %; Eosinophils % 0.1 %; Hematocrit 23.6 % (37.5-50.1); Hemoglobin 7.7 g/dL (12.9-16.9); Immature Granulocytes % 0.6 % (0-4); Lymphocytes # 0.3 K/mcL (0.6-4.6); Mean Corpuscular HGB Conc 32.6 g/dL (31.6-35.5); Mean Corpuscular Hemoglobin 33.2 pg (28.0-33.3); Mean Corpuscular Volume 101.7 fL (83.0-100.0); Mean Platelet Volume 9.3 fL (9.4-12.4); Monocytes # 0.7 K/mcL (0.0-1.3); Neutrophils # 12.9 K/mcL (1.6-8.9); Platelet Count 293 K/mcL (140-400); Red Blood Count 2.32 M/mcL (4.19-5.50); Segmented Neutrophils % 92.2 %
[2020-07-09 05:17] LABS: VBG Ionized Calcium 1.13 mmol/L (1.15-1.35)
[2020-07-09 05:28] LABS: BUN/Creatinine Ratio 45 (6-26); Blood Urea Nitrogen 50 mg/dL (8-23); Calcium 7.6 mg/dL (8.6-10.3); Carbon Dioxide 22 mEq/L (23-29); Chloride 106 mEq/L (98-107); Glucose 152 mg/dL (70-105); Magnesium 1.8 mg/dL (1.6-2.6); Osmolality,Calculated 304 (280-300); Phosphorous 2.5 mg/dL (2.7-4.5); Potassium 4.1 mEq/L (3.5-5.1); Sodium 139 mEq/L (136-145); eGFR For African Americans > 60 (> 60); eGFR For Non-African Americans > 60 (> 60)
[2020-07-09] MEDS: Cefepime HCl 1,000 MG in Water for inj. (sterile) 10 ML IVP SCH ×2 (06:13→18:42)
[2020-07-09] MEDS: *HR* Heparin 5,000 UNIT/ML VIAL SQ SCH ×3 (06:16→22:12)
[2020-07-09] MEDS: Budesonide/Formoterol 160/4.5 1 PUFF INH IH SCH ×2 (07:47→19:54)
[2020-07-09] MEDS ORDERED: Magnesium Sulfate 1 GM/102 ML PIGGYBACK IVPB ONE (08:17)
[2020-07-09] MEDS: Miconazole 2% ointment 141 APPL/141 GM TUBE TP SCH (08:40)
[2020-07-09] MEDS: Gentamicin Oint 15 GM TUBE TP SCH (08:40)
[2020-07-09] MEDS: Primidone 50 MG TABLET PO SCH ×2 (08:47→22:12)
[2020-07-09] MEDS ORDERED: Hydrocortisone Sodium Succ 100 MG/2 ML VIAL IVP SCH (10:01)
[2020-07-09 14:41] LABS: VBG Ionized Calcium 1.11 mmol/L (1.15-1.35)
[2020-07-09 14:45] LABS: BUN/Creatinine Ratio 45 (6-26); Blood Urea Nitrogen 45 mg/dL (8-23); Calcium 7.6 mg/dL (8.6-10.3); Carbon Dioxide 22 mEq/L (23-29); Chloride 103 mEq/L (98-107); Glucose 121 mg/dL (70-105); Magnesium 1.9 mg/dL (1.6-2.6); Osmolality,Calculated 295 (280-300); Phosphorous 2.2 mg/dL (2.7-4.5); Potassium 3.8 mEq/L (3.5-5.1); Sodium 136 mEq/L (136-145); eGFR For African Americans > 60 (> 60); eGFR For Non-African Americans > 60 (> 60)
[2020-07-09] MEDS ORDERED: Albuterol 2.5 MG/3 ML NEBULIZER IH PRN (18:22)
[2020-07-09] MEDS ORDERED: D5% in Water 1,000 ML IVC PRN (18:22)
[2020-07-09] MEDS ORDERED: Dextrose Gel 15 GM/37.5 ML TUBE PO PRN ×2 (18:22)
[2020-07-09] MEDS ORDERED: *HR* Dextrose 50 % in Water (Vial) 50 ML VIAL IVP PRN (18:22)
[2020-07-09] MEDS ORDERED: Naloxone 0.4 MG/ML INJ IVP PRN (18:22)
[2020-07-10 04:14] LABS: Basophils % 0.1 %; Hematocrit 22.5 % (37.5-50.1); Hemoglobin 7.4 g/dL (12.9-16.9); Immature Granulocytes % 0.7 % (0-4); Lymphocytes # 0.3 K/mcL (0.6-4.6); Lymphocytes % 2.4 %; Mean Corpuscular HGB Conc 32.9 g/dL (31.6-35.5); Mean Corpuscular Hemoglobin 32.5 pg (28.0-33.3); Mean Corpuscular Volume 98.7 fL (83.0-100.0); Mean Platelet Volume 9.2 fL (9.4-12.4); Monocytes # 0.6 K/mcL (0.0-1.3); Monocytes % 4.3 %; Nucleated Red Blood Cells 0.1 /100 WBC (0); Platelet Count 260 K/mcL (140-400); Red Blood Count 2.28 M/mcL (4.19-5.50); Red Cell Distribution Width 15.8 % (11.5-14.5); Segmented Neutrophils % 92.5 %
[2020-07-10 04:38] LABS: BUN/Creatinine Ratio 49 (6-26); Blood Urea Nitrogen 43 mg/dL (8-23); Calcium 7.4 mg/dL (8.6-10.3); Carbon Dioxide 22 mEq/L (23-29); Chloride 105 mEq/L (98-107); Glucose 118 mg/dL (70-105); Osmolality,Calculated 296 (280-300); Phosphorous 2.2 mg/dL (2.7-4.5); Potassium 3.2 mEq/L (3.5-5.1); Sodium 137 mEq/L (136-145); eGFR For African Americans > 60 (> 60); eGFR For Non-African Americans > 60 (> 60)
[2020-07-10] MEDS: Cefepime HCl 1,000 MG in Water for inj. (sterile) 10 ML IVP SCH (05:19)
[2020-07-10] MEDS: *HR* Heparin 5,000 UNIT/ML VIAL SQ SCH ×3 (05:19→21:57)
[2020-07-10] MEDS: Budesonide/Formoterol 160/4.5 1 PUFF INH IH SCH ×2 (07:32→20:09)
[2020-07-10] MEDS: Pantoprazole 40 MG VIAL IVP SCH (07:39)
[2020-07-10] MEDS: Hydrocortisone Sodium Succ 100 MG/2 ML VIAL IVP SCH (07:39)
[2020-07-10] MEDS: Primidone 50 MG TABLET PO SCH ×2 (07:42→20:42)
[2020-07-10] MEDS: Insulin LISPRO 300 UNITS/3 ML VIAL SQ SCH ×3 (07:57→16:51)
[2020-07-10] MEDS: Gentamicin Oint 15 GM TUBE TP SCH (09:40)
[2020-07-10] MEDS: Miconazole 2% ointment 141 APPL/141 GM TUBE TP SCH (09:41)
[2020-07-10] MEDS ORDERED: *HR* HYDROcodone/Acet 5/325 mg TABLET PO PRN (13:35)
[2020-07-10] MEDS ORDERED: amLODIPine 5 MG TABLET PO SCH (14:15)
[2020-07-10 15:51] LABS: Folate 5.2 ng/mL (3.0-16.0)
[2020-07-10 15:58] LABS: Ferritin 393 ng/mL (20-250); Iron 60 mcg/dL (65-175); Transferrin < 75 mg/dL (203-362)
[2020-07-10] MEDS ORDERED: carvediloL 25 MG TABLET PO SCH (17:00)
[2020-07-10] MEDS: Cefepime HCl 2,000 MG in Water for inj. (sterile) 20 ML IVP SCH (17:37)
[2020-07-10] MEDS: lisinopriL 10 MG TABLET PO SCH (17:37)
[2020-07-10] MEDS: Furosemide 40 MG TABLET PO SCH (20:42)
[2020-07-10] MEDS ORDERED: Vancomycin 500 MG in 0.9 % Sodium Chloride Mini Bag 100 ML IVPB SCH (23:00)
[2020-07-11 01:30] LABS: Eosinophils # 0.1 K/mcL (0.0-0.6); Eosinophils % 0.8 %; Hematocrit 21.4 % (37.5-50.1); Hemoglobin 7.1 g/dL (12.9-16.9); Immature Granulocytes % 0.6 % (0-4); Lymphocytes # 0.5 K/mcL (0.6-4.6); Lymphocytes % 5.7 %; Mean Corpuscular HGB Conc 33.2 g/dL (31.6-35.5); Mean Corpuscular Hemoglobin 32.7 pg (28.0-33.3); Mean Corpuscular Volume 98.6 fL (83.0-100.0); Mean Platelet Volume 9.3 fL (9.4-12.4); Monocytes # 0.6 K/mcL (0.0-1.3); Monocytes % 6.8 %; Platelet Count 231 K/mcL (140-400); Red Blood Count 2.17 M/mcL (4.19-5.50); Red Cell Distribution Width 15.7 % (11.5-14.5); Segmented Neutrophils % 86.1 %; White Blood Count 9.3 K/mcL (4.3-11.1)
[2020-07-11 01:51] LABS: BUN/Creatinine Ratio 50 (6-26); Blood Urea Nitrogen 34 mg/dL (8-23); Calcium 7.3 mg/dL (8.6-10.3); Carbon Dioxide 23 mEq/L (23-29); Chloride 105 mEq/L (98-107); Glucose 76 mg/dL (70-105); Osmolality,Calculated 286 (280-300); Potassium 2.6 mEq/L (3.5-5.1); Sodium 135 mEq/L (136-145); eGFR For African Americans > 60 (> 60); eGFR For Non-African Americans > 60 (> 60)
[2020-07-11] MEDS: Cefepime HCl 2,000 MG in Water for inj. (sterile) 20 ML IVP SCH (06:35)
[2020-07-11] MEDS: *HR* Heparin 5,000 UNIT/ML VIAL SQ SCH ×3 (06:36→22:38)
[2020-07-11] MEDS: Budesonide/Formoterol 160/4.5 1 PUFF INH IH SCH ×2 (07:50→21:20)
[2020-07-11] MEDS ORDERED: lisinopriL 10 MG TABLET PO SCH (09:00)
[2020-07-11] MEDS ORDERED: levoFLOXacin 750 MG/150 ML 750 MG/150 ML BAG IVPB SCH (09:00)
[2020-07-11] MEDS: Insulin LISPRO 300 UNITS/3 ML VIAL SQ SCH ×3 (09:20→17:41)
[2020-07-11 09:25] LABS: Magnesium 1.6 mg/dL (1.6-2.6)
[2020-07-11] MEDS: Pantoprazole 40 MG VIAL IVP SCH (09:25)
[2020-07-11] MEDS: Furosemide 40 MG TABLET PO SCH (09:26)
[2020-07-11] MEDS: lisinopriL 10 MG TABLET PO SCH (09:26)
[2020-07-11] MEDS: Primidone 50 MG TABLET PO SCH ×2 (09:26→22:37)
[2020-07-11] MEDS: predniSONE 5 MG TABLET PO SCH (09:26)
[2020-07-11] MEDS: Miconazole 2% ointment 141 APPL/141 GM TUBE TP SCH (09:52)
[2020-07-11] MEDS: Gentamicin Oint 15 GM TUBE TP SCH (09:52)
[2020-07-11] MEDS ORDERED: Magnesium Sulfate 1 GM/102 ML PIGGYBACK IVPB ONE (12:35)
[2020-07-11 13:57] LABS: BUN/Creatinine Ratio 49 (6-26); Blood Urea Nitrogen 30 mg/dL (8-23); Calcium 7.2 mg/dL (8.6-10.3); Carbon Dioxide 24 mEq/L (23-29); Chloride 104 mEq/L (98-107); Glucose 95 mg/dL (70-105); Osmolality,Calculated 288 (280-300); Potassium 3.1 mEq/L (3.5-5.1); Sodium 136 mEq/L (136-145); eGFR For African Americans > 60 (> 60); eGFR For Non-African Americans > 60 (> 60)
[2020-07-11] MEDS: QUEtiapine Fumarate 25 MG TABLET PO SCH (22:37)
[2020-07-12] MEDS: levETIRAcetam 250 MG TABLET PO SCH ×2 (05:19→18:32)
[2020-07-12] MEDS: *HR* Heparin 5,000 UNIT/ML VIAL SQ SCH ×3 (05:19→21:09)
[2020-07-12] MEDS: Budesonide/Formoterol 160/4.5 1 PUFF INH IH SCH ×2 (07:40→20:06)
[2020-07-12] MEDS: Cefepime HCl 1,000 MG in Water for inj. (sterile) 10 ML IVP SCH (07:49)
[2020-07-12 08:46] LABS: Hemoglobin 8.1 g/dL (12.9-16.9); Mean Corpuscular HGB Conc 32.4 g/dL (31.6-35.5); Mean Corpuscular Volume 98.8 fL (83.0-100.0); Mean Platelet Volume 9.5 fL (9.4-12.4); Platelet Count 232 K/mcL (140-400); Red Blood Count 2.53 M/mcL (4.19-5.50); Red Cell Distribution Width 15.8 % (11.5-14.5); White Blood Count 7.7 K/mcL (4.3-11.1)
[2020-07-12 08:57] LABS: BUN/Creatinine Ratio 41 (6-26); Blood Urea Nitrogen 25 mg/dL (8-23); Calcium 7.7 mg/dL (8.6-10.3); Carbon Dioxide 23 mEq/L (23-29); Chloride 105 mEq/L (98-107); Glucose 67 mg/dL (70-105); Osmolality,Calculated 285 (280-300); Potassium 3.3 mEq/L (3.5-5.1); Sodium 136 mEq/L (136-145); eGFR For African Americans > 60 (> 60); eGFR For Non-African Americans > 60 (> 60)
[2020-07-12] MEDS: Insulin LISPRO 300 UNITS/3 ML VIAL SQ SCH ×3 (09:16→18:02)
[2020-07-12] MEDS: Miconazole 2% ointment 141 APPL/141 GM TUBE TP SCH (09:21)
[2020-07-12] MEDS: Gentamicin Oint 15 GM TUBE TP SCH (09:27)
[2020-07-12] MEDS: carvediloL 6.25 MG TABLET PO SCH ×2 (09:52→16:38)
[2020-07-12] MEDS: levoFLOXacin 750 MG/150 ML 750 MG/150 ML BAG IVPB SCH (09:53)
[2020-07-12] MEDS: Primidone 50 MG TABLET PO SCH ×2 (09:53→21:09)
[2020-07-12] MEDS: lisinopriL 10 MG TABLET PO SCH (09:53)
[2020-07-12] MEDS: amLODIPine 5 MG TABLET PO SCH (09:53)
[2020-07-12] MEDS: predniSONE 5 MG TABLET PO SCH (09:53)
[2020-07-12] MEDS: Furosemide 40 MG TABLET PO SCH (09:53)
[2020-07-12] MEDS: QUEtiapine Fumarate 25 MG TABLET PO SCH (21:09)
[2020-07-13] MEDS: levETIRAcetam 250 MG TABLET PO SCH ×2 (06:10→18:42)
[2020-07-13] MEDS: *HR* Heparin 5,000 UNIT/ML VIAL SQ SCH ×4 (06:10→20:49)
[2020-07-13] MEDS: Insulin LISPRO 300 UNITS/3 ML VIAL SQ SCH ×3 (07:05→18:43)
[2020-07-13 07:29] LABS: Basophils % 0.1 %; Eosinophils # 0.2 K/mcL (0.0-0.6); Eosinophils % 1.7 %; Hematocrit 24.9 % (37.5-50.1); Hemoglobin 8.3 g/dL (12.9-16.9); Immature Granulocytes % 1.5 % (0-4); Lymphocytes # 0.8 K/mcL (0.6-4.6); Lymphocytes % 9.1 %; Mean Corpuscular HGB Conc 33.3 g/dL (31.6-35.5); Mean Corpuscular Hemoglobin 32.3 pg (28.0-33.3); Mean Corpuscular Volume 96.9 fL (83.0-100.0); Mean Platelet Volume 9.5 fL (9.4-12.4); Monocytes # 0.8 K/mcL (0.0-1.3); Monocytes % 9.5 %; Neutrophils # 6.8 K/mcL (1.6-8.9); Platelet Count 225 K/mcL (140-400); Red Blood Count 2.57 M/mcL (4.19-5.50); Red Cell Distribution Width 15.5 % (11.5-14.5); Segmented Neutrophils % 78.1 %; White Blood Count 8.8 K/mcL (4.3-11.1)
[2020-07-13 07:43] LABS: BUN/Creatinine Ratio 31 (6-26); Blood Urea Nitrogen 18 mg/dL (8-23); Calcium 7.6 mg/dL (8.6-10.3); Carbon Dioxide 21 mEq/L (23-29); Chloride 104 mEq/L (98-107); Glucose 72 mg/dL (70-105); Osmolality,Calculated 284 (280-300); Potassium 3.1 mEq/L (3.5-5.1); Sodium 137 mEq/L (136-145); eGFR For African Americans > 60 (> 60); eGFR For Non-African Americans > 60 (> 60)
[2020-07-13] MEDS: Budesonide/Formoterol 160/4.5 1 PUFF INH IH SCH ×2 (07:51→20:00)
[2020-07-13] MEDS: carvediloL 6.25 MG TABLET PO SCH ×2 (08:30→18:42)
[2020-07-13] MEDS: Primidone 50 MG TABLET PO SCH ×2 (08:31→20:50)
[2020-07-13] MEDS: lisinopriL 10 MG TABLET PO SCH (08:32)
[2020-07-13] MEDS: predniSONE 5 MG TABLET PO SCH (08:32)
[2020-07-13] MEDS: amLODIPine 5 MG TABLET PO SCH (08:32)
[2020-07-13] MEDS: Furosemide 40 MG TABLET PO SCH (08:32)
[2020-07-13] MEDS: levoFLOXacin 750 MG/150 ML 750 MG/150 ML BAG IVPB SCH (08:34)
[2020-07-13] MEDS: Miconazole 2% ointment 141 APPL/141 GM TUBE TP SCH (08:36)
[2020-07-13] MEDS: Gentamicin Oint 15 GM TUBE TP SCH (08:36)
[2020-07-13] MEDS: QUEtiapine Fumarate 25 MG TABLET PO SCH (20:49)
[2020-07-14 06:38] LABS: Basophils % 0.3 %; Eosinophils # 0.2 K/mcL (0.0-0.6); Eosinophils % 2.8 %; Hematocrit 26.5 % (37.5-50.1); Hemoglobin 8.8 g/dL (12.9-16.9); Immature Granulocytes % 2.7 % (0-4); Lymphocytes # 0.8 K/mcL (0.6-4.6); Lymphocytes % 10.7 %; Mean Corpuscular HGB Conc 33.2 g/dL (31.6-35.5); Mean Corpuscular Hemoglobin 32.5 pg (28.0-33.3); Mean Corpuscular Volume 97.8 fL (83.0-100.0); Mean Platelet Volume 9.7 fL (9.4-12.4); Monocytes # 0.9 K/mcL (0.0-1.3); Monocytes % 11.8 %; Neutrophils # 5.3 K/mcL (1.6-8.9); Platelet Count 243 K/mcL (140-400); Red Blood Count 2.71 M/mcL (4.19-5.50); Red Cell Distribution Width 15.7 % (11.5-14.5); Segmented Neutrophils % 71.7 %; White Blood Count 7.4 K/mcL (4.3-11.1)
[2020-07-14] MEDS: *HR* Heparin 5,000 UNIT/ML VIAL SQ SCH ×2 (06:41→15:29)
[2020-07-14] MEDS: levETIRAcetam 250 MG TABLET PO SCH ×2 (06:41→18:05)
[2020-07-14 06:55] LABS: BUN/Creatinine Ratio 26 (6-26); Blood Urea Nitrogen 15 mg/dL (8-23); Calcium 7.8 mg/dL (8.6-10.3); Carbon Dioxide 21 mEq/L (23-29); Chloride 103 mEq/L (98-107); Glucose 75 mg/dL (70-105); Osmolality,Calculated 280 (280-300); Potassium 3.3 mEq/L (3.5-5.1); Sodium 135 mEq/L (136-145); eGFR For African Americans > 60 (> 60); eGFR For Non-African Americans > 60 (> 60)
[2020-07-14] MEDS: Budesonide/Formoterol 160/4.5 1 PUFF INH IH SCH (07:45)
[2020-07-14] MEDS: Insulin LISPRO 300 UNITS/3 ML VIAL SQ SCH ×3 (08:06→16:49)
[2020-07-14 08:17] LABS: Estimated Average Glucose 140 mg/dl
[2020-07-14] MEDS: Furosemide 40 MG TABLET PO SCH (09:42)
[2020-07-14] MEDS: Miconazole 2% ointment 141 APPL/141 GM TUBE TP SCH (09:42)
[2020-07-14] MEDS: amLODIPine 5 MG TABLET PO SCH (09:42)
[2020-07-14] MEDS: Gentamicin Oint 15 GM TUBE TP SCH (09:42)
[2020-07-14] MEDS: carvediloL 6.25 MG TABLET PO SCH ×2 (09:42→18:05)
[2020-07-14] MEDS: Primidone 50 MG TABLET PO SCH (09:43)
[2020-07-14] MEDS: lisinopriL 10 MG TABLET PO SCH (09:43)
[2020-07-14] MEDS: predniSONE 5 MG TABLET PO SCH (09:43)
[2020-07-14] MEDS ORDERED: levoFLOXacin 750 MG TABLET PO SCH (09:45)
[2020-07-14 15:52] VITALS: BP 147/91
== END 2020-07-14 19:40 | disposition home health service (06) | DRG 871 ==
LOC: EMEROOARM 16:38 → ICNU 16:38 → SUATTDRO 07-08 02:54 → 3ANU 07-09 18:17
PROVIDERS: ADMIT Internal Medicine; ATTEND Internal Medicine
PROC: ENDOEBX (2020-07-13 12:15)

== ENCOUNTER 2020-07-18 17:19 | Inpatient (IN) ==
[2020-07-18 18:09] LABS: Basophils % 0.1 %; Eosinophils % 0.2 %; Hematocrit 26.1 % (37.5-50.1); Hemoglobin 8.3 g/dL (12.9-16.9); Immature Granulocytes % 0.7 % (0-4); Lymphocytes # 0.5 K/mcL (0.6-4.6); Lymphocytes % 2.8 %; Mean Corpuscular HGB Conc 31.8 g/dL (31.6-35.5); Mean Corpuscular Volume 100.8 fL (83.0-100.0); Mean Platelet Volume 9.4 fL (9.4-12.4); Monocytes # 0.4 K/mcL (0.0-1.3); Neutrophils # 17.6 K/mcL (1.6-8.9); Platelet Count 222 K/mcL (140-400); Red Blood Count 2.59 M/mcL (4.19-5.50); Red Cell Distribution Width 16.5 % (11.5-14.5); Segmented Neutrophils % 94.2 %
[2020-07-18 18:10] LABS: INR 1.3; Prothrombin Time 14.7 Seconds (9.4-12.1)
[2020-07-18 18:11] LABS: White Blood Count 18.7 K/mcL (4.3-11.1)
[2020-07-18 18:13] LABS: Activated Partial Thrombo Time 33.6 Seconds (26.0-36.0)
[2020-07-18 18:42] LABS: Albumin 2.1 g/dL (3.5-5.7); Bilirubin,Direct 0.1 mg/dL (0.0-0.2); Bilirubin,Indirect 0.2 mg/dL (0.0-1.0); Bilirubin,Total 0.3 mg/dL (0.3-1.0); Globulin 2.2 g/dL (2.4-3.5); Total Protein 4.3 g/dL (6.4-8.9)
[2020-07-18 18:47] LABS: BUN/Creatinine Ratio 22 (6-26); Blood Urea Nitrogen 25 mg/dL (8-23); Calcium 7.5 mg/dL (8.6-10.3); Carbon Dioxide 17 mEq/L (23-29); Chloride 103 mEq/L (98-107); Glucose 61 mg/dL (70-105); Osmolality,Calculated 282 (280-300); Potassium 4.3 mEq/L (3.5-5.1); Sodium 135 mEq/L (136-145); Troponin I 0.12 ng/mL (< 0.04); eGFR For African Americans > 60 (> 60); eGFR For Non-African Americans > 60 (> 60)
[2020-07-18] MEDS ORDERED: Piperacillin/Tazobactam 3.375 GM in Water for inj. (sterile) 20 ML IVP ONE (18:58)
[2020-07-18] MEDS ORDERED: 0.9 % Sodium Chloride 1,000 ML IVC ONE (18:58)
[2020-07-18] MEDS ORDERED: Vancomycin 1,250 MG/262.5 ML IV.SOLN IVPB ONE (18:58)
[2020-07-18 20:04] LABS: Amorphous Sediment,Urine Few per hpf (None-Few); Bacteria,Urine Few per hpf (None-Few); Bilirubin,Urine Small (Negative); Blood,Urine Small (Negative); Clarity,Urine Turbid (Clear); Color,Urine Yellow (Yellow); Glucose,Urine (UA) Normal (Normal); Hyaline Casts,Urine Many per lpf (None Seen); Ketones,Urine Trace mg/dL (Negative); Leukocyte Esterase,Urine Small (Negative); Mucus,Urine Few per lpf (None-Few); Nitrite,Urine Negative (Negative); Protein,Urine 50 mg/dL (Neg-Trace); Squamous Epithelial Cell,Urine Few per hpf (None-Few); Transitional Epi Cells,Urine Few per hpf (None-Few); Urobilinogen,Urine Normal (Normal); WBC,Urine 15-30 per hpf (0-3)
[2020-07-18] MEDS ORDERED: Naloxone 0.4 MG/ML INJ IVP PRN (20:22)
[2020-07-18] MEDS ORDERED: Ondansetron 4 MG/2 ML VIAL IVP PRN (20:32)
[2020-07-18] MEDS: Piperacillin/Tazobactam 3.375 GM in 0.9 % Sodium Chloride Mini Bag 100 ML IVPB SCH (23:17)
[2020-07-18] MEDS: Calcium Gluconate 1gm/50mL 1 GM/50 ML BAG IVPB SCH ×2 (23:17→23:38)
[2020-07-18] MEDS: Ringers Solution, Lactated 1,000 ML IVC SCH (23:26)
[2020-07-19] MEDS ORDERED: Ampicillin/Sulbactam 1,500 MG in 0.9 % Sodium Chloride Mini Bag 100 ML IVPB SCH
[2020-07-19 02:35] LABS: Basophils % 0.1 %; Eosinophils # 0.1 K/mcL (0.0-0.6); Eosinophils % 0.7 %; Hematocrit 24.6 % (37.5-50.1); Hemoglobin 7.8 g/dL (12.9-16.9); Immature Granulocytes % 0.6 % (0-4); Lymphocytes # 0.6 K/mcL (0.6-4.6); Lymphocytes % 3.8 %; Mean Corpuscular HGB Conc 31.7 g/dL (31.6-35.5); Mean Corpuscular Hemoglobin 32.8 pg (28.0-33.3); Mean Corpuscular Volume 103.4 fL (83.0-100.0); Mean Platelet Volume 9.4 fL (9.4-12.4); Monocytes # 0.5 K/mcL (0.0-1.3); Monocytes % 3.4 %; Neutrophils # 14.7 K/mcL (1.6-8.9); Platelet Count 185 K/mcL (140-400); Red Blood Count 2.38 M/mcL (4.19-5.50); Red Cell Distribution Width 16.6 % (11.5-14.5); Segmented Neutrophils % 91.4 %; White Blood Count 16.1 K/mcL (4.3-11.1)
[2020-07-19 02:38] LABS: INR 1.4; Prothrombin Time 15.4 Seconds (9.4-12.1)
[2020-07-19 02:49] LABS: Alanine Aminotransferase 9 Units/L (7-52); Albumin 2.1 g/dL (3.5-5.7); Albumin/Globulin Ratio 0.9 (1.1-2.2); Alkaline Phosphatase 72 Units/L (34-104); Aspartate Amino Transferase 15 Units/L (13-39); BUN/Creatinine Ratio 26 (6-26); Bilirubin,Total 0.3 mg/dL (0.3-1.0); Blood Urea Nitrogen 28 mg/dL (8-23); Calcium 7.9 mg/dL (8.6-10.3); Carbon Dioxide 18 mEq/L (23-29); Chloride 104 mEq/L (98-107); Globulin 2.4 g/dL (2.4-3.5); Glucose 57 mg/dL (70-105); Magnesium 1.2 mg/dL (1.6-2.6); Osmolality,Calculated 285 (280-300); Phosphorous 3.3 mg/dL (2.7-4.5); Sodium 136 mEq/L (136-145); Total Protein 4.5 g/dL (6.4-8.9); eGFR For African Americans > 60 (> 60); eGFR For Non-African Americans > 60 (> 60)
[2020-07-19] MEDS ORDERED: Acetaminophen 325 MG TABLET PO PRN (03:19)
[2020-07-19] MEDS ORDERED: Ringers Solution, Lactated 1,000 ML IVC SCH (08:15)
[2020-07-19] MEDS: Piperacillin/Tazobactam 3.375 GM in 0.9 % Sodium Chloride Mini Bag 100 ML IVPB SCH ×3 (09:43→23:02)
[2020-07-19] MEDS: Aspirin Enteric Coated 81 MG Tablet PO SCH (09:45)
[2020-07-19] MEDS: Magnesium Oxide 400 MG TABLET PO SCH (09:45)
[2020-07-19] MEDS: Ringers Solution, Lactated 1,000 ML IVC SCH (09:55)
[2020-07-19] MEDS: *HR* Heparin 5,000 UNIT/ML VIAL SQ SCH ×2 (15:05→20:19)
[2020-07-20] MEDS: *HR* Heparin 5,000 UNIT/ML VIAL SQ SCH ×3 (04:41→22:04)
[2020-07-20 05:36] LABS: Basophils % 0.2 %; Eosinophils # 0.3 K/mcL (0.0-0.6); Eosinophils % 2.8 %; Hematocrit 20.7 % (37.5-50.1); Hemoglobin 6.8 g/dL (12.9-16.9); Immature Granulocytes % 1.3 % (0-4); Lymphocytes # 0.7 K/mcL (0.6-4.6); Lymphocytes % 6.7 %; Mean Corpuscular HGB Conc 32.9 g/dL (31.6-35.5); Mean Corpuscular Hemoglobin 32.2 pg (28.0-33.3); Mean Corpuscular Volume 98.1 fL (83.0-100.0); Mean Platelet Volume 9.6 fL (9.4-12.4); Monocytes # 0.7 K/mcL (0.0-1.3); Monocytes % 7.3 %; Neutrophils # 8.2 K/mcL (1.6-8.9); Nucleated Red Blood Cells 0.2 /100 WBC (0); Platelet Count 140 K/mcL (140-400); Red Blood Count 2.11 M/mcL (4.19-5.50); Red Cell Distribution Width 16.2 % (11.5-14.5); Segmented Neutrophils % 81.7 %
[2020-07-20 05:45] LABS: BUN/Creatinine Ratio 27 (6-26); Blood Urea Nitrogen 23 mg/dL (8-23); Calcium 6.9 mg/dL (8.6-10.3); Carbon Dioxide 19 mEq/L (23-29); Chloride 111 mEq/L (98-107); Glucose 70 mg/dL (70-105); Magnesium 1.5 mg/dL (1.6-2.6); Osmolality,Calculated 288 (280-300); Potassium 4.1 mEq/L (3.5-5.1); Sodium 138 mEq/L (136-145); eGFR For African Americans > 60 (> 60); eGFR For Non-African Americans > 60 (> 60)
[2020-07-20] MEDS: Aspirin Enteric Coated 81 MG Tablet PO SCH (07:58)
[2020-07-20] MEDS: Magnesium Oxide 400 MG TABLET PO SCH (07:58)
[2020-07-20] MEDS: Piperacillin/Tazobactam 3.375 GM in 0.9 % Sodium Chloride Mini Bag 100 ML IVPB SCH ×3 (07:58→23:55)
[2020-07-20] MEDS ORDERED: *HR* HYDROcodone/Acet 5/325 mg TABLET PO PRN (08:09)
[2020-07-20] MEDS ORDERED: 0.9 % Sodium Chloride 250 ML IVC SCH (09:00)
[2020-07-20 09:06] LABS: Hematocrit 23.5 % (37.5-50.1); Hemoglobin 7.5 g/dL (12.9-16.9)
[2020-07-20] MEDS ORDERED: E-Z-PAQUE (BARIUM SULF) SUSP 1 BOTTLE PO ONE (11:50)
[2020-07-20] MEDS ORDERED: Furosemide 20 MG/2 ML VIAL IVP ONE (13:00)
[2020-07-20 14:54] LABS: Hematocrit 25.9 % (37.5-50.1); Hemoglobin 8.4 g/dL (12.9-16.9)
[2020-07-20] MEDS ORDERED: Ipratropium/Albuterol Neb 3 ML IH PRN (15:45)
[2020-07-20] MEDS: Tiotropium 18 MCG inhalation IH SCH (15:59)
[2020-07-20] MEDS: Megestrol Acetate 400 MG/10 ML UDC PO SCH (16:06)
[2020-07-20] MEDS: Budesonide/Formoterol 160/4.5 1 PUFF INH IH SCH (20:00)
[2020-07-20] MEDS: levETIRAcetam 250 MG TABLET PO SCH (20:18)
[2020-07-20] MEDS: Primidone 50 MG TABLET PO SCH (20:18)
[2020-07-21 03:41] LABS: Basophils % 0.1 %; Eosinophils # 0.3 K/mcL (0.0-0.6); Eosinophils % 4.1 %; Hematocrit 24.9 % (37.5-50.1); Hemoglobin 8.3 g/dL (12.9-16.9); Immature Granulocytes % 0.7 % (0-4); Lymphocytes # 0.5 K/mcL (0.6-4.6); Lymphocytes % 6.6 %; Mean Corpuscular HGB Conc 33.3 g/dL (31.6-35.5); Mean Corpuscular Volume 96.1 fL (83.0-100.0); Mean Platelet Volume 9.4 fL (9.4-12.4); Monocytes # 0.5 K/mcL (0.0-1.3); Monocytes % 7.9 %; Neutrophils # 5.5 K/mcL (1.6-8.9); Platelet Count 116 K/mcL (140-400); Red Blood Count 2.59 M/mcL (4.19-5.50); Red Cell Distribution Width 16.7 % (11.5-14.5); Segmented Neutrophils % 80.6 %; White Blood Count 6.9 K/mcL (4.3-11.1)
[2020-07-21 04:05] LABS: BUN/Creatinine Ratio 36 (6-26); Blood Urea Nitrogen 23 mg/dL (8-23); Calcium 6.9 mg/dL (8.6-10.3); Carbon Dioxide 21 mEq/L (23-29); Chloride 107 mEq/L (98-107); Glucose 75 mg/dL (70-105); Magnesium 1.4 mg/dL (1.6-2.6); Osmolality,Calculated 282 (280-300); Potassium 2.6 mEq/L (3.5-5.1); Sodium 135 mEq/L (136-145); eGFR For African Americans > 60 (> 60); eGFR For Non-African Americans > 60 (> 60)
[2020-07-21] MEDS: *HR* Heparin 5,000 UNIT/ML VIAL SQ SCH ×2 (05:25→15:26)
[2020-07-21] MEDS: levETIRAcetam 250 MG TABLET PO SCH ×2 (07:46→19:38)
[2020-07-21] MEDS: *HR* HYDROcodone/Acet 5/325 mg TABLET PO PRN ×2 (07:46→19:37)
[2020-07-21] MEDS: Megestrol Acetate 400 MG/10 ML UDC PO SCH (07:47)
[2020-07-21] MEDS: Primidone 50 MG TABLET PO SCH ×2 (07:47→19:37)
[2020-07-21] MEDS: Piperacillin/Tazobactam 3.375 GM in 0.9 % Sodium Chloride Mini Bag 100 ML IVPB SCH ×2 (07:47→15:26)
[2020-07-21] MEDS: Furosemide 40 MG TABLET PO SCH (07:47)
[2020-07-21] MEDS: Magnesium Oxide 400 MG TABLET PO SCH (07:47)
[2020-07-21] MEDS: Aspirin Enteric Coated 81 MG Tablet PO SCH (07:47)
[2020-07-21] MEDS ORDERED: Calcium Gluconate 1gm/50mL 1 GM/50 ML BAG IVPB ONE (08:05)
[2020-07-21] MEDS: Budesonide/Formoterol 160/4.5 1 PUFF INH IH SCH ×2 (09:54→20:04)
[2020-07-21] MEDS: Tiotropium 18 MCG inhalation IH SCH (09:54)
[2020-07-21] MEDS ORDERED: Potassium Chloride Elixir 20 MEQ/15 ML UDC PO ONE (10:57)
[2020-07-21] MEDS: lisinopriL 10 MG TABLET PO SCH (11:20)
[2020-07-22] MEDS: *HR* Heparin 5,000 UNIT/ML VIAL SQ SCH ×4 (00:26→20:31)
[2020-07-22] MEDS: Piperacillin/Tazobactam 3.375 GM in 0.9 % Sodium Chloride Mini Bag 100 ML IVPB SCH ×4 (00:26→23:58)
[2020-07-22] MEDS: *HR* HYDROcodone/Acet 5/325 mg TABLET PO PRN ×3 (03:34→16:42)
[2020-07-22 03:36] LABS: Basophils % 0.2 %; Eosinophils # 0.2 K/mcL (0.0-0.6); Eosinophils % 3.4 %; Hematocrit 26.5 % (37.5-50.1); Hemoglobin 8.8 g/dL (12.9-16.9); Immature Granulocytes % 0.8 % (0-4); Lymphocytes # 0.4 K/mcL (0.6-4.6); Lymphocytes % 6.6 %; Mean Corpuscular HGB Conc 33.2 g/dL (31.6-35.5); Mean Corpuscular Hemoglobin 31.5 pg (28.0-33.3); Mean Platelet Volume 9.1 fL (9.4-12.4); Monocytes # 0.6 K/mcL (0.0-1.3); Monocytes % 9.7 %; Neutrophils # 4.9 K/mcL (1.6-8.9); Platelet Count 121 K/mcL (140-400); Red Blood Count 2.79 M/mcL (4.19-5.50); Red Cell Distribution Width 16.6 % (11.5-14.5); Segmented Neutrophils % 79.3 %; White Blood Count 6.2 K/mcL (4.3-11.1)
[2020-07-22 03:51] LABS: BUN/Creatinine Ratio 42 (6-26); Blood Urea Nitrogen 22 mg/dL (8-23); Carbon Dioxide 20 mEq/L (23-29); Chloride 105 mEq/L (98-107); Glucose 88 mg/dL (70-105); Magnesium 1.8 mg/dL (1.6-2.6); Osmolality,Calculated 281 (280-300); Potassium 2.9 mEq/L (3.5-5.1); Sodium 134 mEq/L (136-145); eGFR For African Americans > 60 (> 60); eGFR For Non-African Americans > 60 (> 60)
[2020-07-22] MEDS ORDERED: Potassium Chloride Elixir 20 MEQ/15 ML UDC PO ONE ×2 (05:16→17:00)
[2020-07-22] MEDS: Megestrol Acetate 400 MG/10 ML UDC PO SCH (07:47)
[2020-07-22] MEDS: Aspirin Enteric Coated 81 MG Tablet PO SCH (07:48)
[2020-07-22] MEDS: Tiotropium 18 MCG inhalation IH SCH (07:48)
[2020-07-22] MEDS: Budesonide/Formoterol 160/4.5 1 PUFF INH IH SCH ×2 (07:48→19:47)
[2020-07-22] MEDS: Furosemide 40 MG TABLET PO SCH (07:48)
[2020-07-22] MEDS: levETIRAcetam 250 MG TABLET PO SCH ×2 (07:48→20:30)
[2020-07-22] MEDS: Magnesium Oxide 400 MG TABLET PO SCH (07:49)
[2020-07-22] MEDS: lisinopriL 10 MG TABLET PO SCH (07:49)
[2020-07-22] MEDS: Primidone 50 MG TABLET PO SCH ×2 (07:49→20:31)
[2020-07-22] MEDS: Calcium Gluconate 1gm/50mL 1 GM/50 ML BAG IVPB SCH ×2 (09:42→11:05)
[2020-07-22] MEDS: Acetaminophen 325 MG TABLET PO PRN ×2 (14:36→22:21)
[2020-07-22] MEDS ORDERED: Albumin 25% 12.5gm/50mL 12.5 GM/50 ML IV.SOLN IVPB ONE (23:56)
[2020-07-23] MEDS: *HR* Heparin 5,000 UNIT/ML VIAL SQ SCH ×3 (05:11→21:26)
[2020-07-23 05:45] LABS: Basophils % 0.1 %; Eosinophils # 0.2 K/mcL (0.0-0.6); Eosinophils % 2.3 %; Hematocrit 27.2 % (37.5-50.1); Hemoglobin 8.8 g/dL (12.9-16.9); Immature Granulocytes % 0.5 % (0-4); Lymphocytes # 0.5 K/mcL (0.6-4.6); Lymphocytes % 6.9 %; Mean Corpuscular HGB Conc 32.4 g/dL (31.6-35.5); Mean Corpuscular Hemoglobin 30.9 pg (28.0-33.3); Mean Corpuscular Volume 95.4 fL (83.0-100.0); Mean Platelet Volume 9.8 fL (9.4-12.4); Monocytes # 0.8 K/mcL (0.0-1.3); Neutrophils # 5.8 K/mcL (1.6-8.9); Platelet Count 120 K/mcL (140-400); Red Blood Count 2.85 M/mcL (4.19-5.50); Red Cell Distribution Width 16.7 % (11.5-14.5); Segmented Neutrophils % 79.2 %; White Blood Count 7.4 K/mcL (4.3-11.1)
[2020-07-23 06:03] LABS: BUN/Creatinine Ratio 44 (6-26); Blood Urea Nitrogen 26 mg/dL (8-23); Calcium 7.3 mg/dL (8.6-10.3); Carbon Dioxide 19 mEq/L (23-29); Chloride 106 mEq/L (98-107); Glucose 121 mg/dL (70-105); Magnesium 1.6 mg/dL (1.6-2.6); Osmolality,Calculated 284 (280-300); Potassium 3.5 mEq/L (3.5-5.1); Sodium 134 mEq/L (136-145); eGFR For African Americans > 60 (> 60); eGFR For Non-African Americans > 60 (> 60)
[2020-07-23] MEDS ORDERED: 0.9 % Sodium Chloride 250 ML IVC ONE (07:13)
[2020-07-23] MEDS: Budesonide/Formoterol 160/4.5 1 PUFF INH IH SCH ×2 (07:33→19:39)
[2020-07-23] MEDS: Tiotropium 18 MCG inhalation IH SCH (07:38)
[2020-07-23] MEDS: Primidone 50 MG TABLET PO SCH ×2 (07:56→21:25)
[2020-07-23] MEDS: levETIRAcetam 250 MG TABLET PO SCH ×2 (07:56→21:25)
[2020-07-23] MEDS: Magnesium Oxide 400 MG TABLET PO SCH (07:56)
[2020-07-23] MEDS: Aspirin Enteric Coated 81 MG Tablet PO SCH (07:56)
[2020-07-23] MEDS: Piperacillin/Tazobactam 3.375 GM in 0.9 % Sodium Chloride Mini Bag 100 ML IVPB SCH ×2 (07:57→16:58)
[2020-07-23] MEDS: Megestrol Acetate 400 MG/10 ML UDC PO SCH (08:14)
[2020-07-23] MEDS ORDERED: lisinopriL 5 MG TABLET PO SCH (09:00)
[2020-07-23] MEDS ORDERED: Albumin 25% 12.5gm/50mL 12.5 GM/50 ML IV.SOLN IVPB ONE (11:35)
[2020-07-24] MEDS: Piperacillin/Tazobactam 3.375 GM in 0.9 % Sodium Chloride Mini Bag 100 ML IVPB SCH ×3 (00:08→15:45)
[2020-07-24 04:32] LABS: Basophils % 0.3 %; Eosinophils # 0.3 K/mcL (0.0-0.6); Eosinophils % 3.2 %; Hematocrit 27.2 % (37.5-50.1); Hemoglobin 8.9 g/dL (12.9-16.9); Immature Granulocytes % 1.2 % (0-4); Lymphocytes # 0.9 K/mcL (0.6-4.6); Lymphocytes % 11.5 %; Mean Corpuscular HGB Conc 32.7 g/dL (31.6-35.5); Mean Corpuscular Hemoglobin 31.4 pg (28.0-33.3); Mean Corpuscular Volume 96.1 fL (83.0-100.0); Mean Platelet Volume 9.5 fL (9.4-12.4); Monocytes % 13.2 %; Neutrophils # 5.5 K/mcL (1.6-8.9); Platelet Count 123 K/mcL (140-400); Red Blood Count 2.83 M/mcL (4.19-5.50); Red Cell Distribution Width 16.8 % (11.5-14.5); Segmented Neutrophils % 70.6 %; White Blood Count 7.7 K/mcL (4.3-11.1)
[2020-07-24 04:48] LABS: BUN/Creatinine Ratio 44 (6-26); Blood Urea Nitrogen 32 mg/dL (8-23); Carbon Dioxide 17 mEq/L (23-29); Chloride 109 mEq/L (98-107); Glucose 108 mg/dL (70-105); Magnesium 1.6 mg/dL (1.6-2.6); Osmolality,Calculated 287 (280-300); Potassium 3.3 mEq/L (3.5-5.1); Sodium 135 mEq/L (136-145); eGFR For African Americans > 60 (> 60); eGFR For Non-African Americans > 60 (> 60)
[2020-07-24] MEDS: *HR* Heparin 5,000 UNIT/ML VIAL SQ SCH ×2 (05:25→16:18)
[2020-07-24] MEDS: Budesonide/Formoterol 160/4.5 1 PUFF INH IH SCH ×2 (07:28→19:48)
[2020-07-24] MEDS: Tiotropium 18 MCG inhalation IH SCH (07:30)
[2020-07-24] MEDS ORDERED: Potassium Chloride Elixir 20 MEQ/15 ML UDC PO ONE (08:14)
[2020-07-24] MEDS: Megestrol Acetate 400 MG/10 ML UDC PO SCH (08:32)
[2020-07-24] MEDS: Primidone 50 MG TABLET PO SCH ×2 (08:33→21:19)
[2020-07-24] MEDS: levETIRAcetam 250 MG TABLET PO SCH ×2 (08:34→21:19)
[2020-07-24] MEDS: Aspirin Enteric Coated 81 MG Tablet PO SCH (08:34)
[2020-07-24] MEDS: Magnesium Oxide 400 MG TABLET PO SCH (08:34)
[2020-07-24 18:34] LABS: Adenovirus F 40/41 PCR Not detected (Not detect); Astrovirus PCR Not detected (Not detect); C.difficile Toxin A/B Gene PCR Not detected (Not detect); Campylobacter by PCR Not detected (Not detect); Cryptosporidium by PCR Not detected (Not detect); Cyclospora cayetanensis PCR Not detected (Not detect); E. coli O157 by PCR Not detected (Not detect); Entamoeba histolytica PCR Not detected (Not detect); Enteroaggregative E.coli(EAEC) Not detected (Not detect); Enteropathogenic E.coli(EPEC) Not detected (Not detect); Enterotoxigenic E.coli (ETEC) Not detected (Not detect); Giardia lamblia PCR Not detected (Not detect); Norovirus GI/GII PCR Not detected (Not detect); Plesiomonas shigelloides PCR Not detected (Not detect); Rotavirus A PCR Not detected (Not detect); Salmonella PCR Not detected (Not detect); Sapovirus PCR Not detected (Not detect); Shig/EnteroinvasiveE coli EIEC Not detected (Not detect); Shigalike tox-prod E coli STEC Not detected (Not detect); Vibrio PCR Not detected (Not detect); Vibrio cholerae PCR Not detected (Not detect); Yersinia enterocolitica PCR Not detected (Not detect)
[2020-07-24] MEDS ORDERED: Vancomycin 1 EACH in 0.9 % Sodium Chloride 250 ML IVPB SCH (20:45)
[2020-07-25] MEDS: Piperacillin/Tazobactam 3.375 GM in 0.9 % Sodium Chloride Mini Bag 100 ML IVPB SCH ×2 (00:27→08:39)
[2020-07-25] MEDS: Budesonide/Formoterol 160/4.5 1 PUFF INH IH SCH (07:29)
[2020-07-25] MEDS: Tiotropium 18 MCG inhalation IH SCH (07:32)
[2020-07-25] MEDS: Magnesium Oxide 400 MG TABLET PO SCH (08:38)
[2020-07-25] MEDS: Megestrol Acetate 400 MG/10 ML UDC PO SCH (08:38)
[2020-07-25] MEDS: levETIRAcetam 250 MG TABLET PO SCH (08:39)
[2020-07-25] MEDS: Aspirin Enteric Coated 81 MG Tablet PO SCH (08:39)
[2020-07-25] MEDS: Primidone 50 MG TABLET PO SCH (08:39)
[2020-07-25 09:16] LABS: BUN/Creatinine Ratio 40 (6-26); Blood Urea Nitrogen 38 mg/dL (8-23); Vancomycin,Random 24 mcg/mL; eGFR For African Americans > 60 (> 60); eGFR For Non-African Americans > 60 (> 60)
[2020-07-25 11:34] VITALS: BP 85/56
== END 2020-07-25 14:15 | disposition hospice, home (50) | DRG 871 ==
LOC: 2NNU 17:19 → EMEROOARM 17:19 → SUATTDRO 19:38 → 2NNU 20:48 → 2ANU 07-22 13:42
PROVIDERS: ADMIT Internal Medicine; ATTEND Internal Medicine